=== PATIENT | male | born 1965 | race African-American/Black ===

== ENCOUNTER 2017-08-15 16:16 | Emergency (ER) | payer OTHER ==
[~2017-08-15] VITALS: Ht 172.7 cm; Wt 77.1 kg
--- NOTE | 2017-08-15 17:15 | NUR ---
PT DIRECTED TO ED BED 09 FROM THE ER HALLWAY. ASSISTED TO THE BED.
--- NOTE | 2017-08-15 17:17 | NUR ---
BB PRIVATE EMS FROM [facility] FOR ABD DISTENTION. PT IS TRACHED, ON 3LPM O2. PLACED ON CONT CARDIAC AND POX MONITORING. NAD. WILL CONT TO MONITOR
[2017-08-15] MEDS ORDERED: ONDANSETRON HCL/PF 4 MG/2 ML VIAL ONE (18:29)
[2017-08-15] MEDS ORDERED: MORPHINE SULFATE INJ 4 MG/ML DISP.SYRIN ONE (18:29)
[2017-08-15 18:30] LABS: BASOPHILS % (AUTO) 0.9 % (0.0-2.0); EOSINOPHILS % (AUTO) 9.4 % (0.0-6.0); HEMATOCRIT 47 % (39-51); HEMOGLOBIN 15.6 g/dL (13.5-17.5); LYMPHOCYTES # (AUTO) 1.1 /CMM (0.8-4.8); LYMPHOCYTES % (AUTO) 21.4 % (20.0-44.0); MEAN CORPUSCULAR HEMOGLOBIN 29 PG (26.0-33.0); MEAN CORPUSCULAR HGB CONC 33 g/dl (31.0-36.0); MEAN CORPUSCULAR VOLUME 87 fL (80-96); MONOCYTES # (AUTO) 0.8 /CMM (0.1-1.30); MONOCYTES % (AUTO) 14.6 % (2.0-12.0); NEUTROPHILS % (AUTO) 53.7 % (43.0-81.0); PLATELET COUNT (AUTO) 312 /CMM (150-450); RDW COEFFICIENT OF VARIATION 15.4 (11.5-15.0); RED BLOOD CELL COUNT(AUTO) 5.39 MIL/uL (4.5-6.0); WHITE BLOOD COUNT (AUTO) 5.4 K/uL (4.3-11.0)
[2017-08-15] MEDS ORDERED: ONDANSETRON HCL/PF 4 MG/2 ML VIAL IVP ONE (18:30)
[2017-08-15] MEDS ORDERED: MORPHINE SULFATE INJ 2 MG/ML DISP.SYRIN IV ONE (18:30)
[2017-08-15] MEDS ORDERED: IV NS 0.9% 1,000 ML BAG IV ONE (18:30)
[2017-08-15 18:39] LABS: CALCIUM, SERUM 9.9 mg/dL (8.5-10.1); CREATININE 0.8 mg/dL (0.6-1.3); POTASSIUM 4.2 mmol/L (3.5-5.1)
[2017-08-15 18:43] LABS: INR 1.08 (0.85-1.15)
[2017-08-15 18:45] LABS: ALBUMIN 3.9 g/dL (3.4-5.0); BILIRUBIN,DIRECT 0.2 mg/dL (0.0-0.2); BILIRUBIN,TOTAL 0.3 mg/dL (0.2-1.0)
--- NOTE | 2017-08-15 19:39 | NUR ---
ARRON BULLARD AT BEDSIDE.
--- NOTE | 2017-08-15 20:03 | NUR ---
ABDOMINAL ARRON DONE.
--- NOTE | 2017-08-15 23:01 | NUR ---
CALLED [facility] FOR TRANSPORT BACK TO [facility], ETA 90 MIN, TRIP [phone]
--- NOTE | 2017-08-16 00:26 | NUR ---
transport at bedside report given to emt.
--- NOTE | 2017-08-16 00:30 | NUR ---
IV removed. Catheter intact and site benign. Pressure and 4x4 applied to site. No bleeding noted.
[2017-08-16 00:34] VITALS: BP 123/91
--- NOTE | 2017-08-16 00:34 | NUR ---
report given to SNF Yeison damon.
== END 2017-08-16 00:35 | disposition home or self-care (01) ==
LOC: ER 16:19
DX: R14.0 Abdominal distension (gaseous) (principal); E11.9 Type 2 diabetes mellitus without complications; F41.9 Anxiety disorder, unspecified; R53.1 Weakness; G93.40 Encephalopathy, unspecified; R79.1 Abnormal coagulation profile; Z86.73 Personal history of transient ischemic attack (TIA), and cerebral infarction without residual deficits; Z87.09 Personal history of other diseases of the respiratory system; Z93.0 Tracheostomy status; Z93.1 Gastrostomy status
CPT/HCPCS: 36415; 76700-TC; 80048-TC; 80076-TC; 83690-TC; 85025-TC; 85730-TC; A4606; J2270; J2405; J7030; Z7610

== ENCOUNTER 2018-04-03 23:21 | Emergency (ER) | payer MEDICAID, OTHER ==
[~2018-04-03] VITALS: Ht 180.3 cm; Wt 90.7 kg
[2018-04-03 23:23] VITALS: BP 104/85
--- NOTE | 2018-04-03 23:25 | NUR ---
PT VIDYA FROM [facility] C/O GTUBE REPLACEMENT. GTUBE CAME OUT 1999 TODAY. PT AOX0. NAD NOTED. PT IN BED 12. WILL CONTINUE TO MONITOR.
--- NOTE | 2018-04-03 23:33 | NUR ---
CALLED [facility] [phone] TO CLARIFY PT GTUBE SIZE, SPOKE TO PER KEVIN ANDERSON STATES PT HAD 22F GTUBE.
--- NOTE | 2018-04-03 23:50 | NUR ---
DR. MAHONEY AT BEDSIDE FOR GTUBE REPLACEMENT.
[2018-04-03] MEDS ORDERED: DIATR MEGLU/DIATRIZOATE SODIUM 30 ML BOTTLE (GASTROGRAPHIN) ONE (23:56)
--- NOTE | 2018-04-04 | NUR ---
RADIOLOGY AT BEDSIDE TO VERIFY TUBE PLACEMENT
--- NOTE | 2018-04-04 | NUR ---
RADIOLOGY AT BEDSIDE FOR XRAY
--- NOTE | 2018-04-04 00:06 | NUR ---
IVANA ALCAZAR [place] [facility] [place]: 0030 RUN #: [id number]
--- NOTE | 2018-04-04 00:21 | NUR ---
REPORT GIVEN TO KEVIN PORTER FOR THONG
== END 2018-04-04 00:44 ==
LOC: ER 23:21
DX: K94.23 Gastrostomy malfunction (principal); G93.40 Encephalopathy, unspecified; E11.9 Type 2 diabetes mellitus without complications; F41.9 Anxiety disorder, unspecified; Z98.890 Other specified postprocedural states; Z86.73 Personal history of transient ischemic attack (TIA), and cerebral infarction without residual deficits; Z87.09 Personal history of other diseases of the respiratory system
CPT/HCPCS: 74018; Q9963

== ENCOUNTER 2018-04-19 19:05 | Inpatient (IN) | payer MEDICAID ==
[~2018-04-19] VITALS: Ht 180.3 cm; Wt 79.8 kg
--- NOTE | 2018-04-19 19:16 | NUR ---
PT BIBPA. C/O "HAVING COFFEE GROUND EMESIS VOMIT" -SOB -ACUTE DISTRESS AT THIS TIME. PT AOX.1 AT BASELINE. FAMILY AT BEDSIDE.
[2018-04-19] MEDS ORDERED: PANTOPRAZOLE 40 MG VIAL ONE (19:42)
[2018-04-19 20:00] LABS: BASOPHILS % (AUTO) 0.4 % (0.0-2.0); EOSINOPHILS % (AUTO) 3.4 % (0.0-6.0); HEMATOCRIT 49 % (39-51); HEMOGLOBIN 16.1 g/dL (13.5-17.5); LYMPHOCYTES # (AUTO) 1.1 /CMM (0.8-4.8); LYMPHOCYTES % (AUTO) 18.8 % (20.0-44.0); MEAN CORPUSCULAR HGB CONC 33 g/dl (31.0-36.0); MEAN CORPUSCULAR VOLUME 89 fL (80-96); MONOCYTES # (AUTO) 0.7 /CMM (0.1-1.30); MONOCYTES % (AUTO) 12.4 % (2.0-12.0); NEUTROPHILS # (AUTO) 3.6 /CMM (1.8-8.9); PLATELET COUNT (AUTO) 370 /CMM (150-450); RED BLOOD CELL COUNT(AUTO) 5.42 MIL/uL (4.5-6.0); WHITE BLOOD COUNT (AUTO) 5.6 K/uL (4.3-11.0)
[2018-04-19] MEDS ORDERED: IV NS 0.9% 1,000 ML BAG IV ONE (20:00)
[2018-04-19] MEDS ORDERED: PANTOPRAZOLE 40 MG VIAL IV ONE (20:00)
[2018-04-19 20:07] LABS: CALCIUM, SERUM 9.4 mg/dL (8.5-10.1); CREATININE 0.8 mg/dL (0.6-1.3); POTASSIUM 4.3 mmol/L (3.5-5.1)
[2018-04-19 20:14] LABS: ALBUMIN 3.5 g/dL (3.4-5.0); BILIRUBIN,DIRECT 0.1 mg/dL (0.0-0.2); BILIRUBIN,TOTAL 0.2 mg/dL (0.2-1.0); TOTAL PROTEIN, SERUM 8.2 g/dL (6.4-8.2)
--- NOTE | 2018-04-19 20:35 | NUR ---
PAGED DR LEWIS FOR CONSULT THIS PT
[2018-04-19] MEDS ORDERED: MAG HYDROX/AL HYDROX/SIMETH 30 ML UDC PO PRN (21:30)
[2018-04-19] MEDS ORDERED: ONDANSETRON HCL/PF 4 MG/2 ML VIAL IVP PRN (21:30)
[2018-04-19] MEDS ORDERED: Z GUARD REMEDY 2 OZ OINT TP PRN (21:30)
[2018-04-19] MEDS ORDERED: ACETAMINOPHEN 325 MG TABLET PO PRN (21:30)
[2018-04-19] MEDS ORDERED: MAGNESIUM HYDROXIDE 30 ML UDC PO PRN (21:30)
--- NOTE | 2018-04-19 22:06 | NUR ---
REPORT GIVEN TO ANNALEE BROWN.
[2018-04-19] MEDS ORDERED: SIME80TA15 GT (22:17)
[2018-04-19] MEDS ORDERED: GEMF600T5 GT (22:17)
[2018-04-19] MEDS ORDERED: PHEN32.43 GT (22:17)
[2018-04-19] MEDS ORDERED: SACC250C GT (22:17)
[2018-04-19] MEDS ORDERED: MULT-213 GT (22:17)
[2018-04-19] MEDS ORDERED: NUT.237L31 GT (22:17)
[2018-04-19] MEDS ORDERED: METO50TA16 GT (22:17)
[2018-04-19] MEDS ORDERED: CLON0.1T GT (22:17)
[2018-04-19] MEDS ORDERED: CALC-883 GT (22:17)
[2018-04-19] MEDS ORDERED: INSU100V7 SQ (22:17)
[2018-04-19] MEDS ORDERED: CRAN3875 GT (22:17)
[2018-04-19] MEDS ORDERED: IPRA3AMP23 IH ×2 (22:17)
[2018-04-19] MEDS ORDERED: ASPI-1169 GT (22:17)
[2018-04-19] MEDS ORDERED: FAMO20TA8 GT (22:17)
[2018-04-19] MEDS ORDERED: DOCU100C36 GT (22:17)
[2018-04-19] MEDS ORDERED: HEPA50008 SQ (22:17)
--- NOTE | 2018-04-19 22:20 | NUR ---
RN MS ADMITTING NOTE RECEIVED PT FROM ER, ADMITTED FOR GIB REPORT GIVEN BY SKILLS INSTRUCTORLEEANNA W FOOD PROCESSING PLANT MANAGER ADMITTING, ORDERS ENTERED PER PROTOCOL SKIN ISSUES NOTED WOUND CONSUL ENTERED, PT ON T-PIECES CONNECTED TO O2 @ 2L, POA, SISTER DOES NOT WANT TO BE ATTACHED TO AEROSOL HUMIDIFIER, "STATES PT BEEN OFF AEROSOL FOR 2 YRS" WISHES RESPECTED, WILL ENDORSE TO AM RN TO F/U W / TRANSPORTATION ENGINEERING TECHNICIAN. NOTED PT PRODUCTIVE, WITH LARGE YELLOW SECRETIONS, WITH STRONG COUGH ABLE TO EXPECTORATE. RAC#20G PATENT, NS@50 ML/HR STARTED, GTF ON HOLD, WITH ORDER TO INSERT NGT TO LICS BY FOOD PROCESSING PLANT MANAGER ERIN DURÁN DONE TO VERIFY PLACEMENT, HOB ELEVATED, ASP' PRECAUTION, ALL SAFETY MEASURES IN PLACE. WILL CONT' TO MONITOR.
[2018-04-19 22:46] VITALS: BP 123/88
--- NOTE | 2018-04-19 23:00 | NUR ---
ATTEMPTED TO PLACE COOL AEROSOL ON PT WITH TRACH COLLAR BUT FAMILY MEMBER AT BEDSIDE REFUSED DUE TO THE PT DOESN'T TOLERATE IT. CHARGE NURSE DARCY AND KEVIN MANTILLA NOTIFIED.
[2018-04-19] MEDS: IV NS 0.9% 1,000 ML IV PRN (23:27)
[2018-04-20 00:10] LABS: HEMOGLOBIN 14.7 g/dL (13.5-17.5)
[2018-04-20] MEDS ORDERED: Medication Not On Formulary EA (Ipratropium/Albuterol Sulfate (Duoneb 2.5-0.5 Mg/3 Ml So IH PRN (00:30)
[2018-04-20] MEDS ORDERED: CLONIDINE HCL 0.1 MG TABLET GT PRN (00:30)
[2018-04-20 04:29] VITALS: BP 119/86
[2018-04-20] MEDS: SIMETHICONE 80 MG TAB.CHEW GT SCH ×3 (05:17→21:06)
[2018-04-20] MEDS ORDERED: Medication Not On Formulary EA (Ipratropium/Albuterol Sulfate (Duoneb 2.5-0.5 Mg/3 Ml So IH SCH (06:00)
--- NOTE | 2018-04-20 06:43 | NUR ---
RN MS CLOSING NOTE ENDORSED PT IN CONT' ON ILS VIA NGT 100 ML O/P, VS STABLE, WILL ENDORSE TO AM RN TO F/U ON PLAN
[2018-04-20 07:04] LABS: BASOPHILS % (AUTO) 1.1 % (0.0-2.0); EOSINOPHILS % (AUTO) 7.4 % (0.0-6.0); HEMATOCRIT 43 % (39-51); HEMOGLOBIN 14.3 g/dL (13.5-17.5); LYMPHOCYTES # (AUTO) 1.1 /CMM (0.8-4.8); LYMPHOCYTES % (AUTO) 26.7 % (20.0-44.0); MEAN CORPUSCULAR HGB CONC 33 g/dl (31.0-36.0); MEAN CORPUSCULAR VOLUME 89 fL (80-96); MONOCYTES # (AUTO) 0.7 /CMM (0.1-1.30); MONOCYTES % (AUTO) 17.4 % (2.0-12.0); NEUTROPHILS # (AUTO) 1.9 /CMM (1.8-8.9); NEUTROPHILS % (AUTO) 47.4 % (43.0-81.0); PLATELET COUNT (AUTO) 292 /CMM (150-450); RED BLOOD CELL COUNT(AUTO) 4.84 MIL/uL (4.5-6.0)
[2018-04-20 07:23] LABS: CALCIUM, SERUM 8.8 mg/dL (8.5-10.1); CREATININE 0.7 mg/dL (0.6-1.3); MAGNESIUM 2.1 mg/dL (1.8-2.4); PHOSPHORUS 3.5 mg/dL (2.5-4.9); POTASSIUM 4.1 mmol/L (3.5-5.1)
--- NOTE | 2018-04-20 07:25 | NUR ---
MS RN INITIAL NOTES RECEIVED PT SLEEPING ON BED, BUT EASY TO AROUSE. PT NONVERBAL. PT ON T-PIECES CONNECTED TO O2 @ 2L, POA, SISTER DOES NOT WANT TO BE ATTACHED TO AEROSOL HUMIDIFIER PER HOSPITAL PHARMACIST NURSE AND WILL F/U W/ AMALGAMATOR. NO SOB AND PAIN NOTED. RAC#20G PATENT, NS@50 ML/HR, TOLERATING WELL, NO INFILTRATION NOTED. GTF CLAMPED, SITE CLEAN, DRY, AND INTACT. ASP PRECAUTION, ALL SAFETY MEASURES IN PLACE, SIDE RAILS UP X2, CALL LIGHT WITHIN REACH. WILL CONTINUE TO MONITOR PT THROUGHOUT SHIFT.
[2018-04-20 07:31] LABS: THYROID STIMULATING HORMONE 1.007 uIU/mL (0.358-3.74)
[2018-04-20 08:00] VITALS: BP 111/83
[2018-04-20] MEDS ORDERED: Medication Not On Formulary EA (Cran/Vitc/Mannose/Inulin/Brom (Uti-Stat Liquid) 30 ML) GT SCH (09:00)
[2018-04-20] MEDS ORDERED: INSULIN GLARGINE, 100 UNIT/ML CARTRIDGE SQ SCH (09:00)
[2018-04-20] MEDS ORDERED: CALCIUM CARB 250MG /VITAMIN D 1 UDTAB PO SCH (09:00)
[2018-04-20] MEDS ORDERED: ALBUTEROL FS 2.5 MG/0.5 ML VIAL.NEB NEB PRN (09:00)
[2018-04-20] MEDS ORDERED: IPRATROPIUM NEB FS 0.5 MG/2.5 ML AMPUL.NEB NEB PRN (09:00)
[2018-04-20] MEDS ORDERED: PANTOPRAZOLE 40 MG VIAL IV SCH (09:00)
[2018-04-20] MEDS: DOCUSATE SODIUM LIQ 100 MG/10 ML UDC GT SCH ×2 (09:37→17:01)
[2018-04-20] MEDS: PHENOBARBITAL 30 MG TABLET GT SCH (09:38)
[2018-04-20] MEDS: FAMOTIDINE (20 MG) 20 MG TABLET GT SCH ×2 (09:38→17:02)
[2018-04-20] MEDS: MULTIVITAMINS,THERAGRAN 1 UDTAB TABLET GT SCH (09:38)
[2018-04-20] MEDS: LACTOBACILLUS RHAMNOSUS GG 1 EACH CAP.SPRINK PO SCH (09:38)
[2018-04-20] MEDS: GEMFIBROZIL 600 MG TABLET GT SCH ×2 (09:38→17:02)
[2018-04-20] MEDS: METOPROLOL TARTRATE 50 MG TABLET GT SCH ×2 (09:46→17:02)
[2018-04-20] MEDS: PANTOPRAZOLE 40 MG/PACK PACK GT SCH (12:49)
[2018-04-20] MEDS: BLOOD SUGAR DIAGNOSTIC 1 EACH STRIP IN SCH ×2 (12:53→18:12)
[2018-04-20] MEDS: ALBUTEROL FS 2.5 MG/0.5 ML VIAL.NEB NEB SCH ×2 (13:57→19:47)
[2018-04-20] MEDS: IPRATROPIUM NEB FS 0.5 MG/2.5 ML AMPUL.NEB NEB SCH ×2 (13:57→19:47)
[2018-04-20 16:00] VITALS: BP 113/80
--- NOTE | 2018-04-20 16:00 | NUR ---
MS RN NOTES CONTACTED MURALI KRUEGER FOR CLARIFICATION OF RESUME TUBE FEEDING TOLERATED PER HER NOTE. AWAITING FOR RESPONSE.
[2018-04-20] MEDS: SUCRALFATE 1 G/10 ML UDC GT SCH ×2 (17:01→21:06)
--- NOTE | 2018-04-20 19:20 | NUR ---
MS RN CLOSING NOTES PT RESTING IN BED, NONVERBAL. PT ON T-PIECES CONNECTED TO O2 AT 2L, TOLERATING WELL. NO SOB AND PAIN NOTED. RAC #20G PATENT, NS@50 ML/HR, TOLERATING WELL, NO INFILTRATION NOTED. GTF CLAMPED, SITE CLEAN, DRY, AND INTACT. ASP PRECAUTION, ALL SAFETY MEASURES IN PLACE, SIDE RAILS UP X2, CALL LIGHT WITHIN REACH. NO ACUTE CHANGES THROUGHOUT SHIFT. ALL NEEDS MET. ALL MD ORDER ATTENDED. ENDORSED TO CADDY PACKER NURSE FOR THONG.
--- NOTE | 2018-04-20 19:30 | NUR ---
MS RN NOTE REPORT GIVEN BEDSIDE, PT RESTING IN BED, NONVERBAL SISTER IN ROOM. PT ON T-PIECES CONNECTED TO O2 AT 2L, TOLERATING WELL. NO SOB AND PAIN NOTED. PER SISTER, "MY BROTHER APPEARS COMFORTABLE" RAC #20G PATENT, NS@50 ML/HR, TOLERATING WELL, NO INFILTRATION NOTED. GTF CLAMPED, SITE CLEAN, DRY, AND INTACT. ASP PRECAUTION, ALL SAFETY MEASURES IN PLACE, SIDE RAILS UP X3, CALL LIGHT WITHIN REACH. NO S/S OF DISTRESS ALL NEEDS MET RN WILL CONTINUE TO MONITOR
[2018-04-20] MEDS: IV NS 0.9% 1,000 ML IV PRN (19:55)
[2018-04-20 20:00] VITALS: BP 103/72
[2018-04-20 20:06] VITALS: BP 103/72
[2018-04-20] MEDS: INSULIN GLARGINE, 100 UNIT/ML CARTRIDGE SQ SCH (21:24)
--- NOTE | 2018-04-20 22:15 | NUR ---
MS RN NOTE PATIENT BATHED, LINENS CHANGED, AND REPOSITIONED FOR COMFORT
--- NOTE | 2018-04-21 00:08 | NUR ---
MS RN NOTE PATIENT REPOSITIONED FOR COMFORT AND TRACHEAL SITE CLEANSED
[2018-04-21] MEDS: ALBUTEROL FS 2.5 MG/0.5 ML VIAL.NEB NEB SCH ×4 (02:02→19:28)
[2018-04-21] MEDS: IPRATROPIUM NEB FS 0.5 MG/2.5 ML AMPUL.NEB NEB SCH ×4 (02:02→19:28)
[2018-04-21 04:00] VITALS: BP 109/69
[2018-04-21] MEDS: BLOOD SUGAR DIAGNOSTIC 1 EACH STRIP IN SCH ×4 (05:32→17:28)
[2018-04-21] MEDS: SIMETHICONE 80 MG TAB.CHEW GT SCH ×3 (05:32→21:42)
[2018-04-21 06:21] LABS: BASOPHILS % (AUTO) 0.3 % (0.0-2.0); HEMATOCRIT 42 % (39-51); HEMOGLOBIN 13.7 g/dL (13.5-17.5); LYMPHOCYTES # (AUTO) 0.8 /CMM (0.8-4.8); LYMPHOCYTES % (AUTO) 12.8 % (20.0-44.0); MEAN CORPUSCULAR HGB CONC 33 g/dl (31.0-36.0); MEAN CORPUSCULAR VOLUME 89 fL (80-96); MONOCYTES # (AUTO) 0.8 /CMM (0.1-1.30); MONOCYTES % (AUTO) 12.9 % (2.0-12.0); NEUTROPHILS # (AUTO) 4.4 /CMM (1.8-8.9); PLATELET COUNT (AUTO) 293 /CMM (150-450); RED BLOOD CELL COUNT(AUTO) 4.65 MIL/uL (4.5-6.0); WHITE BLOOD COUNT (AUTO) 6.3 K/uL (4.3-11.0)
[2018-04-21 06:28] LABS: CALCIUM, SERUM 8.7 mg/dL (8.5-10.1); CREATININE 0.7 mg/dL (0.6-1.3); POTASSIUM 4.3 mmol/L (3.5-5.1)
[2018-04-21] MEDS: SUCRALFATE 1 G/10 ML UDC GT SCH ×4 (06:40→21:42)
--- NOTE | 2018-04-21 07:10 | NUR ---
MS RN OPENING NOTES RECEIVED PT LYING ON BED.PT IS AWAKE AND OBTUNDED,CANNOT FOLLOW COMMANDS.ON COOL AEROSOL O2 2L,TOLERATING WELL.NO SOB AND ACUTE DISTRESS NOTED.NG TUBE IS IN PLACE WITH LOW INTERMITTENT SUCTION.NO BLEEDING NOTED.NPO EXCEPT MEDS.IV LINE IS ON RIGHT AC G20,IV FLUID UIS RUNNING,SITE IS CLEAN,DRY AND INTACT.NO INFILTRATION NOTED.SAFETY IS MAINTAINED AT ALL TIMES.CALL LIGHT IS WITHIN REACH.BED IS IN LOCKED .WILL CONTINUE TO MONITOR THE PT CLOSELY.
--- NOTE | 2018-04-21 07:21 | NUR ---
MS RN NOTE NO ACUTE CHANGES THROUGHOUT THE SHIFT. CARE EXECUTED ORDERED. ENDORSED TO AM FOR THONG.
[2018-04-21 08:00] VITALS: BP 103/73
[2018-04-21] MEDS: GEMFIBROZIL 600 MG TABLET GT SCH ×2 (08:30→17:27)
[2018-04-21] MEDS: DOCUSATE SODIUM LIQ 100 MG/10 ML UDC GT SCH ×2 (08:30→17:27)
[2018-04-21] MEDS: LACTOBACILLUS RHAMNOSUS GG 1 EACH CAP.SPRINK PO SCH (08:30)
[2018-04-21] MEDS: PANTOPRAZOLE 40 MG/PACK PACK GT SCH (08:30)
[2018-04-21] MEDS: CALCIUM CARB 250MG /VITAMIN D 1 UDTAB GT SCH (08:31)
[2018-04-21] MEDS: FAMOTIDINE (20 MG) 20 MG TABLET GT SCH ×2 (08:31→17:27)
[2018-04-21] MEDS: MULTIVITAMINS,THERAGRAN 1 UDTAB TABLET GT SCH (08:31)
[2018-04-21] MEDS: PHENOBARBITAL 30 MG TABLET GT SCH (08:31)
[2018-04-21] MEDS: METOPROLOL TARTRATE 50 MG TABLET GT SCH ×2 (08:31→17:28)
[2018-04-21 16:00] VITALS: BP 98/66
[2018-04-21] MEDS: IV NS 0.9% 1,000 ML IV PRN (16:28)
[2018-04-21] MEDS: INSULIN GLARGINE, 100 UNIT/ML CARTRIDGE SQ SCH (17:29)
[2018-04-21] MEDS ORDERED: VITAMINS A AND D 56.7 GM TUBE TP PRN (18:00)
--- NOTE | 2018-04-21 18:40 | NUR ---
MS RN CLOSING NOTES PT IS LYING ON BED WITH LOW INTERMITTENT NG TUBE SUCTION.ALL THE DUE MEDS ARE GIVEN.FAMILY IS AT BEDSIDE.PT IS CLEAN DRY AND INTACT.NO INFILTRATION NOTED.KIARA ENDORSE TO CURRICULUM SUPERVISOR RN FOR THONG AND NOTE VITAL SIGNS.
--- NOTE | 2018-04-21 19:30 | NUR ---
RECEIVED PATIENT IN BED WITH EYES CLOSED; EASILY AROUSABLE. OBTUNDED; RESPONSIVE TO VOICE AND TOUCH. NO ACUTE DISTRESS NOTED. NO SIGNS OF PAIN NOTED. IV SITE PATENT, INTACT; IVF INFUSING ORDERED. NGT IN PLACE; ON INTERMITTENT LOW SUCTION. HOB RAISED. COOLING MEASURES GIVEN FOR TEMP 100F. ON LOW BED WITH BILATERAL UPPER SIDE RAILS UP. CALL ESCALERA WITHIN EASY REACH. WILL CONTINUE TO MONITOR. SISTER AT BEDSIDE.
[2018-04-21 20:00] VITALS: BP 124/82
[2018-04-22] MEDS: BLOOD SUGAR DIAGNOSTIC 1 EACH STRIP IN SCH ×5 (00:24→23:41)
[2018-04-22] MEDS: IPRATROPIUM NEB FS 0.5 MG/2.5 ML AMPUL.NEB NEB SCH ×4 (01:20→20:05)
[2018-04-22] MEDS: ALBUTEROL FS 2.5 MG/0.5 ML VIAL.NEB NEB SCH ×4 (01:20→20:05)
[2018-04-22] MEDS: SIMETHICONE 80 MG TAB.CHEW GT SCH ×3 (05:39→21:07)
--- NOTE | 2018-04-22 06:30 | NUR ---
PATIENT ASLEEP, EASILY AROUSABLE. RESPIRATIONS EVEN. NO SIGNS OF PAIN NOTED. AFEBRILE. DUE MEDS GIVEN WITH NO ASE NOTED. NEEDS ATTENDED. KEPT CLEAN, DRY, AND COMFORTABLE. TURNED AND REPOSITIONED Q 2 HOURS. SUCTIONED PRN. SAFETY PRECAUTIONS AND COMFORT MEASURES IN PLACE. WILL GIVE REPORT TO DAY SHIFT FOR CONTINUITY OF CARE.
--- NOTE | 2018-04-22 07:28 | NUR ---
RN MS OPENING NOTES RECEIVED PATIENT IN BED OBTUNDED WITH SPONTANEOUS EYE MOVEMENT.NO SIGNS OR SYMPTOMS OF RESPIRATORY DISTRESS ON 5 LTRS COOL AEROSOL VIA TRACH MASK.NO ACUTE PAIN NOTED. NGT IN PLACE ON INTERMITTENT SUCTION NO SEAN BLOOD NOTED AT THIS TIME. NPO AT TIS TIME EXCEPT MEDS SAFETY PRECAUTIONS IN LACE BED IN LOW AND LOCKED POSITION. WILL CONT TO MONITOR
[2018-04-22 08:00] VITALS: BP_SYST 126; BP_DIAS 83; BP_DIAS 86
[2018-04-22] MEDS: PHENOBARBITAL 30 MG TABLET GT SCH (08:37)
[2018-04-22] MEDS: GEMFIBROZIL 600 MG TABLET GT SCH ×2 (08:37→17:38)
[2018-04-22] MEDS: FAMOTIDINE (20 MG) 20 MG TABLET GT SCH ×2 (08:37→17:38)
[2018-04-22] MEDS: MULTIVITAMINS,THERAGRAN 1 UDTAB TABLET GT SCH (08:37)
[2018-04-22] MEDS: DOCUSATE SODIUM LIQ 100 MG/10 ML UDC GT SCH ×2 (08:37→17:38)
[2018-04-22] MEDS: LACTOBACILLUS RHAMNOSUS GG 1 EACH CAP.SPRINK PO SCH (08:37)
[2018-04-22] MEDS: CALCIUM CARB 250MG /VITAMIN D 1 UDTAB GT SCH (08:38)
[2018-04-22] MEDS: PANTOPRAZOLE 40 MG/PACK PACK GT SCH (08:38)
[2018-04-22] MEDS: METOPROLOL TARTRATE 50 MG TABLET GT SCH ×2 (08:38→17:38)
[2018-04-22] MEDS: SUCRALFATE 1 G/10 ML UDC GT SCH ×4 (08:55→21:07)
[2018-04-22] MEDS ORDERED: GLUCERNA 1.2 1,000 ML BOTTLE NG PRN (10:30)
--- NOTE | 2018-04-22 11:30 | NUR ---
RN MS NOTES NG CLAMPED FEEDING STARTED @ 10ML/HR WITH GOAL OF 70ML/HR. WILL INCREASE Q8HRS BY 10 ML IF PATIENT IS TOLERATING
--- NOTE | 2018-04-22 11:45 | NUR ---
RN MS NOTES PATIENT ORDERS FOR EGD IN THE AM .AWAITING FAMILY ARRIVAL TO OBTAIN CONSENT PATIENT WILL BE NPO AFTER DINNER
[2018-04-22] MEDS: IV NS 0.9% 1,000 ML IV PRN (12:17)
[2018-04-22 16:00] VITALS: BP 113/81
[2018-04-22] MEDS ORDERED: VITAMINS A AND D 56.7 GM TUBE TP PRN (17:00)
[2018-04-22] MEDS: INSULIN GLARGINE, 100 UNIT/ML CARTRIDGE SQ SCH (17:43)
--- NOTE | 2018-04-22 17:57 | NUR ---
CONSENT OBTAINED FROM SISTER
--- NOTE | 2018-04-22 19:31 | NUR ---
RN MS OPENING NOTES RECEIVED PT IN BED,SLEEPING, EASILY AROUSE TO TOUCH, OBTUNDED. BREATHING EVEN AND UN LABORED ON COOL AEROSOL, 5L TRACH COLLAR. CLAMPED NG TUBE IN PLACE. CLAMPED GTUBE IN PLACE. PT NPO AFTER MIDNIGHT FOR EGD IN THE AM. IV ON THW R AC #20 NS @50ML/HR. SISTER AT BEDSIDE, BED INLOWEST LOCKED POSITION, WILL CONTINUE TO MONITOR.
--- NOTE | 2018-04-22 19:36 | NUR ---
RN MS CLOSING NOTES PATIENT IN BED OBTUNDED WITH SPONTANEOUS EYE MOVEMENT.NO SIGNS OR SYMPTOMS OF RESPIRATORY DISTRESS ON 5 LTRS COOL AEROSOL VIA TRACH MASK.NO ACUTE PAIN NOTED. NGT IN PLACE AND CLAMPED TOLERATED GTF AT 10 ML/HR NOW NPO AT THIS TIME EXCEPT MEDS FOR EGD IN AM. CONSENT SIGNED AND IN FOLDER SAFETY PRECAUTIONS IN PLACE BED IN LOW AND LOCKED POSITION. WILL ENDORSE TO NOC
[2018-04-23] VITALS: BP 115/76
[2018-04-23] MEDS: IPRATROPIUM NEB FS 0.5 MG/2.5 ML AMPUL.NEB NEB SCH ×4 (01:09→19:46)
[2018-04-23] MEDS: ALBUTEROL FS 2.5 MG/0.5 ML VIAL.NEB NEB SCH ×4 (01:09→19:46)
--- NOTE | 2018-04-23 01:17 | NUR ---
PATIENT RECEIVED ON 28% AEROSOL T-COLLAR, TOLERATING WITH NO DISTRESS/SOB NOTED. SUCTIONED FOR MODERATE, THIN, WHITE SECRETIONS. GIVEN IN-LINE TREATMENTS WITH NO ADVERSE REACTIONS. AMBU BAG AT BEDSIDE. Addendum: 04/23/18 at 0122 by JOHANA KELLEY RT Amended: Links added.
[2018-04-23] MEDS: SIMETHICONE 80 MG TAB.CHEW GT SCH ×3 (05:19→21:58)
[2018-04-23] MEDS: IV NS 0.9% 1,000 ML IV PRN (05:20)
[2018-04-23] MEDS: BLOOD SUGAR DIAGNOSTIC 1 EACH STRIP IN SCH ×3 (05:41→18:03)
[2018-04-23 06:29] LABS: BASOPHILS % (AUTO) 0.7 % (0.0-2.0); EOSINOPHILS % (AUTO) 3.2 % (0.0-6.0); HEMATOCRIT 40 % (39-51); HEMOGLOBIN 13.5 g/dL (13.5-17.5); LYMPHOCYTES # (AUTO) 0.8 /CMM (0.8-4.8); LYMPHOCYTES % (AUTO) 12.3 % (20.0-44.0); MEAN CORPUSCULAR HGB CONC 34 g/dl (31.0-36.0); MEAN CORPUSCULAR VOLUME 88 fL (80-96); NEUTROPHILS # (AUTO) 4.6 /CMM (1.8-8.9); NEUTROPHILS % (AUTO) 68.8 % (43.0-81.0); PLATELET COUNT (AUTO) 262 /CMM (150-450); RED BLOOD CELL COUNT(AUTO) 4.52 MIL/uL (4.5-6.0); WHITE BLOOD COUNT (AUTO) 6.6 K/uL (4.3-11.0)
[2018-04-23 06:46] LABS: CALCIUM, SERUM 8.8 mg/dL (8.5-10.1); CREATININE 0.7 mg/dL (0.6-1.3); POTASSIUM 3.6 mmol/L (3.5-5.1)
--- NOTE | 2018-04-23 06:52 | NUR ---
RN MS CLOSING NOTES PT REMAINS IN BED,SLEEPING, EASILY AROUSED TO TOUCH, OBTUNDED. BREATHING EVEN AND UNLABORED ON COOL AEROSOL, 5L TRACH COLLAR. CLAMPED NG TUBE IN PLACE. CLAMPED GTUBE IN PLACE. PT NPO FOR EGD IN THE AM. IV ON THE R AC #20 NS @50ML/HR.BG 83, NO ACTION NEEDED, BED IN LOWEST LOCKED POSITION, WILL ENDORSE TO DAY NURSE FOR THONG.
[2018-04-23 08:00] VITALS: BP 81/76
[2018-04-23] MEDS: GEMFIBROZIL 600 MG TABLET GT SCH ×2 (09:50→17:35)
[2018-04-23] MEDS: PHENOBARBITAL 30 MG TABLET GT SCH (09:50)
[2018-04-23] MEDS: PANTOPRAZOLE 40 MG/PACK PACK GT SCH ×2 (09:50→21:58)
[2018-04-23] MEDS: CALCIUM CARB 250MG /VITAMIN D 1 UDTAB GT SCH (09:50)
[2018-04-23] MEDS: DOCUSATE SODIUM LIQ 100 MG/10 ML UDC GT SCH ×2 (09:50→17:35)
[2018-04-23] MEDS: SUCRALFATE 1 G/10 ML UDC GT SCH ×4 (09:50→21:58)
[2018-04-23] MEDS: FAMOTIDINE (20 MG) 20 MG TABLET GT SCH ×2 (09:50→17:35)
[2018-04-23] MEDS: MULTIVITAMINS,THERAGRAN 1 UDTAB TABLET GT SCH (09:50)
[2018-04-23] MEDS: LACTOBACILLUS RHAMNOSUS GG 1 EACH CAP.SPRINK PO SCH (09:50)
[2018-04-23] MEDS: METOPROLOL TARTRATE 50 MG TABLET GT SCH ×2 (09:51→17:36)
[2018-04-23] MEDS ORDERED: GLUCERNA 1.2 1,000 ML BOTTLE NG PRN ×2 (11:08→23:00)
[2018-04-23 16:00] VITALS: BP 103/70
[2018-04-23] MEDS: INSULIN GLARGINE, 100 UNIT/ML CARTRIDGE SQ SCH (19:34)
--- NOTE | 2018-04-23 19:53 | NUR ---
MS RN CLOSING NOTES PT IN BED,SLEEPING, A/O X 1, OBTUNDED. BREATHING EVEN AND UNLABORED ON COOL AEROSOL, 5L TRACH COLLAR. NG TUBE REMOVED PER MD. GTUBE INTACT AND PATENT RUNNING GLUCERNA @ 30ML/HOUR. PATIENT TOLERATING FEEDING WELL. SCHEDULED EGD CANCELLED TODAY PER MD. IV ON THE R AC #20 NS @50ML/HR. PATIENT TURNED PER PROTOCOL DURING SHIFT. HEELS FLOATED. SAFETY MEASURES IN PLACE. BED IN LOWEST AND LOCKED POSITION. CARE ENDORSED TO GAS PIT WORKER RN.
[2018-04-23 20:00] VITALS: BP 118/77
[2018-04-23 20:24] VITALS: BP 118/77
--- NOTE | 2018-04-23 20:42 | NUR ---
RN INITIAL NOTES Patient in bed, eyes closed. Trach collar intact to cool aerosol 5L oxygen, tolerating well. Abdomen presence of Gtube, gastric residual minimal amount. No facial grimace, no moaning, appears comfortable in bed. Maintained safety, will cont to monitor.
[2018-04-24] MEDS: BLOOD SUGAR DIAGNOSTIC 1 EACH STRIP IN SCH ×3 (00:23→12:13)
[2018-04-24] MEDS: ALBUTEROL FS 2.5 MG/0.5 ML VIAL.NEB NEB SCH ×3 (02:01→14:25)
[2018-04-24] MEDS: IPRATROPIUM NEB FS 0.5 MG/2.5 ML AMPUL.NEB NEB SCH ×3 (02:01→14:25)
[2018-04-24] MEDS: IV NS 0.9% 1,000 ML IV PRN (03:12)
[2018-04-24 04:00] VITALS: BP 121/76
[2018-04-24 04:55] VITALS: BP 121/76
[2018-04-24] MEDS: SIMETHICONE 80 MG TAB.CHEW GT SCH ×2 (05:20→12:13)
--- NOTE | 2018-04-24 07:00 | NUR ---
MS RN CLOSING NOTES Patient in bed, non verbal, able to open eyes. Trach collar intact to cool aerosol 5L oxygen, tolerating well. Thick mucus, nebulizer as scheduled per RT, suction PRN. Gtube intact, gastric residual minimal amount 5ml. Gtube feeding Glucerna 1.2 at 50ml Goal rate, tolerating well. No vomiting. No BM this shift. Maintained safety. Per Dr. Jackman/GI will not do EGD at this time (see miscellaneous order). Patient's sister voicing to proceed with EGD, per report Dr. Blackman will inform GI. Will endorse to oncoming RN. 0
--- NOTE | 2018-04-24 07:30 | NUR ---
RN NOTES RECEIVED PATIENT IN BED RESTING COMFORTABLY. NON VERBAL WITH TRACH COLLAR, RESPIRATIONS EVEN AND UNLABORED, IN NO APPARENT PAIN OR DISCOMFORT. IV ACCESS PATENT AND INTACT NO REDNESS OR INFILTRATION NOTED. PATIENT KEPT CLEAN DRY AND COMFORTABLE, CALL LIGHT WITHIN EASY REACH, WILL CONTINUE TO MONITOR
[2018-04-24 07:45] LABS: CALCIUM, SERUM 8.5 mg/dL (8.5-10.1); CREATININE 0.6 mg/dL (0.6-1.3); POTASSIUM 3.6 mmol/L (3.5-5.1)
[2018-04-24 08:00] VITALS: BP 113/63
[2018-04-24 08:21] LABS: BASOPHILS % (AUTO) 0.9 % (0.0-2.0); EOSINOPHILS % (AUTO) 6.6 % (0.0-6.0); HEMATOCRIT 37 % (39-51); HEMOGLOBIN 12.7 g/dL (13.5-17.5); LYMPHOCYTES # (AUTO) 0.8 /CMM (0.8-4.8); LYMPHOCYTES % (AUTO) 15.8 % (20.0-44.0); MEAN CORPUSCULAR HGB CONC 34 g/dl (31.0-36.0); MEAN CORPUSCULAR VOLUME 88 fL (80-96); MONOCYTES # (AUTO) 0.8 /CMM (0.1-1.30); MONOCYTES % (AUTO) 15.9 % (2.0-12.0); NEUTROPHILS # (AUTO) 3.1 /CMM (1.8-8.9); NEUTROPHILS % (AUTO) 60.8 % (43.0-81.0); PLATELET COUNT (AUTO) 251 /CMM (150-450); RED BLOOD CELL COUNT(AUTO) 4.27 MIL/uL (4.5-6.0)
--- NOTE | 2018-04-24 08:45 | NUR ---
RN NOTES PER GI DR. KIRAN, NO EGD AT THIS TIME, PT TO BE CONTINUED TO BE MONITORED
[2018-04-24] MEDS: SUCRALFATE 1 G/10 ML UDC GT SCH ×2 (08:56→12:13)
[2018-04-24] MEDS: CALCIUM CARB 250MG /VITAMIN D 1 UDTAB GT SCH (08:56)
[2018-04-24] MEDS: GEMFIBROZIL 600 MG TABLET GT SCH (08:56)
[2018-04-24] MEDS: LACTOBACILLUS RHAMNOSUS GG 1 EACH CAP.SPRINK PO SCH (08:57)
[2018-04-24] MEDS: METOPROLOL TARTRATE 50 MG TABLET GT SCH (08:57)
[2018-04-24] MEDS: MULTIVITAMINS,THERAGRAN 1 UDTAB TABLET GT SCH (08:57)
[2018-04-24] MEDS: FAMOTIDINE (20 MG) 20 MG TABLET GT SCH (08:57)
[2018-04-24] MEDS: PANTOPRAZOLE 40 MG/PACK PACK GT SCH (08:57)
[2018-04-24] MEDS: DOCUSATE SODIUM LIQ 100 MG/10 ML UDC GT SCH (08:58)
[2018-04-24] MEDS: PHENOBARBITAL 30 MG TABLET GT SCH (08:58)
[2018-04-24 10:37] LABS: BAND % (MANUAL) 1 % (0.0-5.0); EOSINOPHILS % (MANUAL) 3 % (0-4); LYMPHOCYTES % (MANUAL) 16 % (16-48); MONOCYTES % (MANUAL) 19 % (0-11.0); NEUTROPHILS % (MANUAL) 61 (42-76)
[2018-04-24 16:00] VITALS: BP 103/75
--- NOTE | 2018-04-24 16:45 | NUR ---
RN NOTES PATIENT IN BED RESTING COMFORTABLY. NON VERBAL WITH TRACH COLLAR, RESPIRATIONS EVEN AND UNLABORED, IN NO APPARENT PAIN OR DISCOMFORT. IV ACCESS REMOVED ORDERED WITH NO COMPLICATIONS NOTED. PATIENT KEPT CLEAN DRY AND COMFORTABLE, REMAINS AFEBRILE, REPORT GIVEN TO SNF RNDINH, FOR CONTINUITY OF CARE, FAMILY AWARE OF PT'S DC ALL BELONGINGS ACCOUNTED FOR, ID REMOVED PICTURES OF SKIN TAKEN, DISCHARGED IN STABLE CONDITION
== END 2018-04-24 16:45 | DRG 253 ==
LOC: ER 19:07 → TELE1 22:07 → MEDSG1 22:39
PROVIDERS: ADMIT Registered Nurse; ATTEND Family Medicine
DX: K92.2 Gastrointestinal hemorrhage, unspecified (principal); G93.40 Encephalopathy, unspecified; Z99.11 Dependence on respirator [ventilator] status; J96.10 Chronic respiratory failure, unspecified whether with hypoxia or hypercapnia; R53.2 Functional quadriplegia; Z93.0 Tracheostomy status; D68.59 Other primary thrombophilia; D63.8 Anemia in other chronic diseases classified elsewhere; E11.9 Type 2 diabetes mellitus without complications; F41.9 Anxiety disorder, unspecified; Z93.1 Gastrostomy status; R74.8 Abnormal levels of other serum enzymes; R13.10 Dysphagia, unspecified; Z86.73 Personal history of transient ischemic attack (TIA), and cerebral infarction without residual deficits
CPT/HCPCS: 31720; 36415; 71045-TC; 74018; 76700-TC; 80048-TC; 80061-TC; 80076-TC; 82962-TC; 82977-TC; 83690-TC; 83735-TC; 84100-TC; 84443-TC; 85025-TC; 85027-TC; 85730-TC; 86850-TC; 87081-TC; 94640-TC; 94760-TC; A4623; A6402; C9113; G0378; J1815; J7030

== ENCOUNTER 2020-04-03 17:10 | Inpatient (IN) | payer MEDICAID ==
[~2020-04-03] VITALS: Ht 170.2 cm; Wt 70.8 kg
[~2020-04-03 17:10] MED LIST: ASPI-1169 GT; CALC-883 GT; CLON0.1T GT; CRAN3875 GT; DOCU100C36 GT; FAMO20TA8 GT; GEMF600T90 GT; HEPA50008 SQ; INSU100V7 SQ; IPRA3AMP23 IH; METO50TA16 GT; MULT-213 GT; NUT.237L31 GT; PHEN32.46 GT; SACC250C GT; SIME80TA15 GT
--- NOTE | 2020-04-03 17:22 | NUR ---
MIKE ELMORE FROM [facility] FOR NOTED TACHYCARDIA. TO ER BED 8, HOOKED TO NON DESTRUCTIVE TESTING SCIENTIST, BP CUFF AND POX, NOTED SINUS TACHYCARDIC AT 118BPM, WARM TO TOUCH. NOTED W TRACHEOSTOMY, AT 4LPM O2, G-TUBE, AND R FOOT IVP 22G. CHANGED TO HOSP GOWN, COOLING MEASURES DONE. DR CALLE AT BEDSIDE
--- NOTE | 2020-04-03 17:32 | NUR ---
EER TECH AT BEDSIDE FOR EKG
--- NOTE | 2020-04-03 17:52 | NUR ---
URINE SAMPLE COLLECTED VIA IRIZARRY CATHETER AND SENT TO LAB
[2020-04-03] MEDS ORDERED: ACETAMINOPHEN 325 MG TABLET MC ONE (18:00)
--- NOTE | 2020-04-03 18:00 | NUR ---
RAPID AND PCR COVID SWAB DONE AND SENT TO LAB
[2020-04-03] MEDS ORDERED: INSU100V39 SQ (18:05)
[2020-04-03] MEDS ORDERED: ACET325T53 PO ×2 (18:05)
[2020-04-03] MEDS ORDERED: MAGN400O6 PO (18:05)
[2020-04-03] MEDS ORDERED: NA P133E RC (18:05)
[2020-04-03] MEDS ORDERED: ASCO500C17 PO (18:05)
[2020-04-03] MEDS ORDERED: CEFT1FRO2 IV (18:05)
[2020-04-03] MEDS ORDERED: QUERCETIN PO (18:05)
[2020-04-03] MEDS ORDERED: NUT.237L30 GT (18:05)
[2020-04-03] MEDS ORDERED: CHOL200013 PO (18:05)
[2020-04-03] MEDS ORDERED: BISA10SU11 RC (18:05)
[2020-04-03] MEDS ORDERED: SENN-18 PO (18:05)
[2020-04-03] MEDS ORDERED: ACET-2605 PO (18:05)
[2020-04-03] MEDS ORDERED: CHLO118L4 TP (18:05)
[2020-04-03] MEDS ORDERED: ACETAMINOPHEN 325 MG TABLET ONE (18:07)
[2020-04-03 18:20] LABS: BILIRUBIN,URINE Negative (NEGATIVE); COLOR,URINE YELLOW (YELLOW); LEUKOCYTE ESTERASE ,URINE Negative (NEGATIVE); NITRITE, URINE Negative (NEGATIVE); PH,URINE 6.5 (5.0-8.0); PROTEIN,URINE 100 mg/dl (NEGATIVE); UGLUCOSE Negative (NEGATIVE); UROBILINOGEN,URINE 0.2 EU/dL (0.2)
[2020-04-03 18:21] LABS: ALANINE AMINOTRANSFERASE 90 U/L (12-78); ALKALINE PHOSPHATASE 110 U/L (46-116); ASPARTATE AMINOTRANSFERASE 41 U/L (15-37); B-TYPE NATRIURETIC PEPTIDE 83 PG/ML (0-125); BILIRUBIN,DIRECT 0.1 mg/dL (0.0-0.2); BILIRUBIN,TOTAL 0.3 mg/dL (0.2-1.0); CALCIUM, SERUM 8.9 mg/dL (8.5-10.1); CARBON DIOXIDE 35 mmol/L (21-32); CHLORIDE 118 mmol/L (98-107); CREATININE 1.1 mg/dL (0.6-1.3); GLUCOSE 233 mg/dL (74-106); POTASSIUM 3.8 mmol/L (3.5-5.1); TOTAL PROTEIN, SERUM 8.8 g/dL (6.4-8.2)
[2020-04-03 18:22] LABS: BASOPHILS # (AUTO) 0.1 /CMM (0.0-0.2); BASOPHILS % (AUTO) 1.3 % (0.0-2.0); HEMATOCRIT 42 % (39-51); HEMOGLOBIN 13.2 g/dL (13.5-17.5); LYMPHOCYTES # (AUTO) 1.6 /CMM (0.8-4.8); MEAN CORPUSCULAR HGB CONC 32 g/dl (31.0-36.0); MEAN CORPUSCULAR VOLUME 87 fL (80-96); MONOCYTES # (AUTO) 0.8 /CMM (0.1-1.30); MONOCYTES % (AUTO) 10.8 % (2.0-12.0); NEUTROPHILS # (AUTO) 4.7 /CMM (1.8-8.9); NEUTROPHILS % (AUTO) 63.9 % (43.0-81.0); PLATELET COUNT (AUTO) 208 /CMM (150-450); WHITE BLOOD COUNT (AUTO) 7.3 K/uL (4.3-11.0)
[2020-04-03 18:23] LABS: SODIUM SERUM 159 mmol/L (136-145)
[2020-04-03] MEDS ORDERED: PIPERACILLIN /TAZOBACTAM 3.375 G in IV D5W 50 ML IV ONE (18:30)
[2020-04-03 18:31] LABS: BACTERIA,URINE Rare /HPF (None Seen); RBC,URINE 0-2 /HPF (0-2); SQUAMOUS EPITHELIAL CELL,UR 0-2 /HPF (None Seen); WBC,URINE 0-2 /HPF (0-3)
[2020-04-03 18:32] LABS: UREA NITROGEN, BLOOD 30 mg/dL (7-18)
--- NOTE | 2020-04-03 19:09 | NUR ---
REPORT GIVEN TO FELICIA BROWN FOR THONG
--- NOTE | 2020-04-03 19:10 | NUR ---
PT NONVERBAL W/ TRACHE IN PLACE. VSS AT THIST TIME. NO ACUTE DISTRESS NOTED. PT CONNECTED TO THE SHEET TURNER AND POX. WILL CONTINUE TO MONITOR PT
--- NOTE | 2020-04-03 19:20 | NUR ---
negative covid per lab
--- NOTE | 2020-04-03 19:29 | NUR ---
MURALI RODRÍGUEZ SPEAKING TO DR. CALLE REGARDING PLAN OF CARE.
[2020-04-03] MEDS ORDERED: IV NS 0.9% 1,000 ML BAG IV ONE (19:30)
[2020-04-03] MEDS ORDERED: VANCOMYCIN 1 GM in IV D5W 250 ML IV ONE (19:30)
--- NOTE | 2020-04-03 19:30 | NUR ---
CALLED NURSING SUP FOR TELE BED.
[2020-04-03] MEDS ORDERED: VANCOMYCIN 1 GM VIAL ONE (19:35)
--- NOTE | 2020-04-03 19:54 | NUR ---
JOSELYN, PT'S SISTER
[2020-04-03] MEDS ORDERED: DEXTROSE 50%-WATER 50 ML DISP.SYRIN IV PRN (20:00)
--- NOTE | 2020-04-03 20:37 | NUR ---
ATTEMPTED TO GIVE REPORT, NURSE NOT AVAILABLE
--- NOTE | 2020-04-03 20:44 | NUR ---
REPORT GIVEN TO KEVIN KRAMER FOR THONG
[2020-04-03] MEDS ORDERED: ACETAMINOPHEN 650 MG/SUPP.RECT RC ONE (20:57)
[2020-04-03 20:58] LABS: ABG OXYGEN SATURATION 96.7 % (92.0-98.5); ABG PCO2 48.4 mmHg (35.0-45.0); ABG PH 7.429 (7.350-7.450); ABG PO2 103.3 mmHg (75.0-100.0); AaDO2 97.2 mmHg; COHb 0.3 % (0.5-1.5); MetHb 0.5 % (0.0-1.5); O2Hb 95.9 % (94.0-97.0); SITE, ABG Right Radial; VENT MODE, BG T-PIECE ON 4 LPM
[2020-04-03] MEDS ORDERED: VANCOMYCIN 500 MG in IV D5W 100ml IV ONE (21:00)
[2020-04-03] MEDS: ACETAMINOPHEN 650 MG/SUPP.RECT RC PRN (21:00)
--- NOTE | 2020-04-03 21:13 | NUR ---
PT TRANSFERRED TO ROOM 113 VIA ACLS PROTOCOL
--- NOTE | 2020-04-03 21:13 | NUR ---
RN NOTE RECEIVED PT FROM ER VIA JOSEFINA ACCOMPANIED BY RN AND EMT. PT CURRENTLY ON TRACH PIECE CONNECTED TO 5L OF O2. PT IS OBTUNDED BUT PHYSICALLY RESPONSIVE TO VERBAL AND TACTILE STIMULI. RESPIRATIONS EVEN AND UNLABORED. NO SIGNS OF DISCOMFORT. SKIN WARM TO TOUCH, COMPREHENSIVE PHYSICAL ASSESSMENT COMPLETED. WITH RIGHT AC 20G IV FLUSHED AND PATENT. IRIZARRY CATHETER IN PLACE DRAINING URINE, WITH GT CLAMPED AT THIS TIME BUT PLACEMENT VERIFIED VIA AUSCULTATION. PT WITH COPIOUS AMOUNT OF THICK YELLOW SECRETIONS. SUCTIONED VIA TRACH AND ORAL. CLEAN UP HELPER BANQUET PLACED SHOWING SINUS TACHYCARDIA. SAFETY MEASURES IN PLACE PER PROTOCOL, BED LOCKED AND IN LOW POSITION, SIDE RAILS UP X 2, BED ALARM ON, WILL MONITOR PATIENT AND CARRY OUT ACTIVE MD ORDERS.
[2020-04-03 21:15] VITALS: BP 107/64
--- NOTE | 2020-04-03 21:20 | NUR ---
RN NOTE NO BELONGINGS NOTED WITH PT.
[2020-04-03] MEDS: IV D5W 1,000 ML IV PRN (21:55)
[2020-04-03] MEDS ORDERED: BLOOD SUGAR DIAGNOSTIC 1 EACH STRIP IN SCH (22:00)
[2020-04-03] MEDS: ENOXAPARIN SODIUM 40 MG/0.4 ML DISP.SYRIN SQ SCH (22:09)
[2020-04-03] MEDS ORDERED: IV NS 0.9% 500 ML IV ONE (23:30)
--- NOTE | 2020-04-03 23:36 | NUR ---
RN NOTE TUBE FEEDING STARTED AT 40ML/HOUR. WILL INCREASE FEEDING TOLERATED TO REACH GOAL OF 90ML/HOUR.
[2020-04-03] MEDS: GLUCERNA 1.2 1,000 ML BOTTLE GT PRN (23:46)
[2020-04-03] MEDS: INSULIN REGULAR, HUMAN 100 UNIT/ML 3 ML VIAL SQ PRN (23:58)
[2020-04-04] VITALS: BP 95/65
[2020-04-04] MEDS ORDERED: PIPERACILLIN /TAZOBACTAM 3.375 G in IV D5W 50 ML IV SCH ×2
[2020-04-04] MEDS: BLOOD SUGAR DIAGNOSTIC 1 EACH STRIP IN SCH ×4 (00:21→17:05)
[2020-04-04] MEDS: ZOSYN IVPB 4.5 G in IV D5W 50ml IV SCH ×4 (00:44→17:05)
--- NOTE | 2020-04-04 03:08 | NUR ---
RN NOTE SPOKE TO JOSELYN (SISTER) AND GAVE UPDATE ON PT'S STATUS AND PLAN OF CARE.
[2020-04-04 04:00] VITALS: BP 102/74
[2020-04-04] MEDS: VANCOMYCIN HCL 0.75 GM in IV D5W 250 ML IV SCH ×3 (04:08→20:06)
[2020-04-04] MEDS: INSULIN REGULAR, HUMAN 100 UNIT/ML 3 ML VIAL SQ PRN ×4 (05:18→23:43)
[2020-04-04 06:01] LABS: BASOPHILS % (AUTO) 0.1 % (0.0-2.0); EOSINOPHILS % (AUTO) 2.5 % (0.0-6.0); HEMATOCRIT 39 % (39-51); HEMOGLOBIN 12.3 g/dL (13.5-17.5); LYMPHOCYTES # (AUTO) 0.7 /CMM (0.8-4.8); LYMPHOCYTES % (AUTO) 8.7 % (20.0-44.0); MEAN CORPUSCULAR HGB CONC 32 g/dl (31.0-36.0); MEAN CORPUSCULAR VOLUME 88 fL (80-96); MONOCYTES # (AUTO) 0.5 /CMM (0.1-1.30); MONOCYTES % (AUTO) 6.7 % (2.0-12.0); NEUTROPHILS # (AUTO) 6.3 /CMM (1.8-8.9); PLATELET COUNT (AUTO) 173 /CMM (150-450); RED BLOOD CELL COUNT(AUTO) 4.44 MIL/uL (4.5-6.0); WHITE BLOOD COUNT (AUTO) 7.7 K/uL (4.3-11.0)
--- NOTE | 2020-04-04 06:41 | NUR ---
RN NOTE NO CHANGES OBSERVED SINCE PT ADMISSION. PT CURRENTLY ON TRACH PIECE CONNECTED TO 4L OF O2. PT OBTUNDED BUT PHYSICALLY RESPONSIVE TO VERBAL AND TACTILE STIMULI. RESPIRATIONS EVEN AND UNLABORED. NO SIGNS OF DISCOMFORT. WITH RIGHT AC 20G IV FLUSHED AND PATENT. IRIZARRY CATHETER IN PLACE DRAINING URINE VIA GRAVITY, WITH GT FEEDING (GLUCERNA 1.2) RUNNING AT 65ML/HOUR WITH GOAL OF 90ML/HOUR X 20 HOURS. ORAL CARE DONE. PT SUCTIONED. MUSIC INTERN SHOWING SINUS TACHYCARDIA. SAFETY MEASURES IN PLACE, BED LOCKED AND IN LOW POSITION, SIDE RAILS UP X 2, BED ALARM ON, WILL ENDORSE TO MORNING RN FOR THONG.
[2020-04-04 07:04] LABS: ALBUMIN 2.5 g/dL (3.4-5.0); BILIRUBIN,TOTAL 0.4 mg/dL (0.2-1.0); CALCIUM, SERUM 8.7 mg/dL (8.5-10.1); MAGNESIUM 2.3 mg/dL (1.8-2.4); PHOSPHORUS 2.6 mg/dL (2.5-4.9); POTASSIUM 3.6 mmol/L (3.5-5.1); TOTAL PROTEIN, SERUM 7.5 g/dL (6.4-8.2)
[2020-04-04 07:21] LABS: THYROID STIMULATING HORMONE 2.037 uIU/mL (0.358-3.74)
--- NOTE | 2020-04-04 07:55 | NUR ---
RN OPENING NOTE RECEIVED PATIENT RESTING IN BED COMFORTABLY. PT CURRENTLY ON TRACH PIECE CONNECTED TO 4L OF O2. RESPIRATIONS EVEN AND UNLABORED. NO SIGNS OF DISCOMFORT. WITH RIGHT AC 20G IV FLUSHED AND PATENT. IRIZARRY CATHETER IN PLACE DRAINING VIA GRAVITY, WITH GT FEEDING (GLUCERNA 1.2) RUNNING AT 65ML/HR. TYPE COPY EXAMINER SHOWING SINUS TACHYCARDIA. SAFETY MEASURES IN PLACE, BED LOCKED AND IN LOW POSITION, SIDE RAILS UP X 2, BED ALARM ON, WILL CONTINUE TO MONITOR.
[2020-04-04 08:00] VITALS: BP 96/70
[2020-04-04 12:00] VITALS: BP 105/73
[2020-04-04] MEDS: ACETAMINOPHEN 650 MG/SUPP.RECT RC PRN ×2 (14:30→14:38)
--- NOTE | 2020-04-04 14:38 | NUR ---
BUILDING CONSULTANT NOTE PATIENT HR WENT TO 122. PT WAS SUCTIONED AND HR DECREASED TO 100. TEMP 100.3, SUPPOSITORY TYLENOL 325MG GIVEN.
[2020-04-04 16:00] VITALS: BP 100/68
[2020-04-04] MEDS: GLUCERNA 1.2 1,000 ML BOTTLE GT PRN (17:19)
--- NOTE | 2020-04-04 18:06 | NUR ---
INDUSTRIAL ECONOMICS TEACHER CLOSING NOTE PT RESTING IN BED. PT CURRENTLY ON TRACH PIECE CONNECTED TO 4L OF O2. PT OBTUNDED BUT PHYSICALLY RESPONSIVE TO TACTILE STIMULI. RESPIRATIONS EVEN AND UNLABORED. NO SIGNS OF DISCOMFORT. RIGHT AC 20G IV FLUSHED AND PATENT. RUNNING D5W @ 75ML. IRIZARRY CATHETER IN PLACE DRAINING URINE VIA GRAVITY, WITH GT FEEDING (GLUCERNA 1.2) RUNNING AT 65ML/HOUR. PT SUCTIONED. PEARL PELLER SHOWING SINUS TACHYCARDIA. SAFETY MEASURES IN PLACE, BED LOCKED AND IN LOW POSITION, SIDE RAILS UP X 2, BED ALARM ON, WILL ENDORSE TO ONCOMING SHIFT.
[2020-04-04] MEDS: IV D5W 1,000 ML IV PRN (18:43)
--- NOTE | 2020-04-04 19:26 | NUR ---
RN NOTE RECEIVED PT OBTUNDED IN BED WITH HEAD OF BED ELEVATED. CURRENTLY ON TRACH PIECE CONNECTED TO 4L OF O2. PHYSICALLY RESPONSIVE TO VERBAL AND TACTILE STIMULI. RESPIRATIONS EVEN AND UNLABORED. NO SIGNS OF DISCOMFORT. WITH RIGHT AC 20G IV FLUSHED AND PATENT WITH D5W RUNNING AT 75ML/HOUR. IRIZARRY CATHETER IN PLACE DRAINING URINE VIA GRAVITY, WITH GT FEEDING (GLUCERNA 1.2) RUNNING AT 65ML/HOUR WITH GOAL OF 90ML/HOUR X 20 HOURS. ORAL CARE DONE. PT SUCTIONED ORALLY AND VIA TRACH. MUD CAR WORKER SHOWING SINUS TACHYCARDIA. PT O2 SATURATION 100% VIA CONTINUOUS PULSE OXIMETRY. SAFETY MEASURES IN PLACE, BED LOCKED AND IN LOW POSITION, SIDE RAILS UP X 2, BED ALARM ON, WILL MONITOR PATIENT AND CARRY OUT ACTIVE MD ORDERS.
--- NOTE | 2020-04-04 19:30 | NUR ---
RN NOTE NOTED TUBE FEEDING ORDER IS FOR 20 HOURS. PAUSED AT THIS TIME. WILL RESUME AT 2300.
[2020-04-04] MEDS: ENOXAPARIN SODIUM 40 MG/0.4 ML DISP.SYRIN SQ SCH (19:45)
[2020-04-04 20:00] VITALS: BP 120/91
--- NOTE | 2020-04-04 23:00 | NUR ---
RN NOTE TUBE FEEDING RESUMED ORDERED @ 65ML/HOUR.
[2020-04-05] VITALS: BP 114/82
[2020-04-05] MEDS: ZOSYN IVPB 4.5 G in IV D5W 50ml IV SCH ×5 (00:07→23:51)
[2020-04-05] MEDS: BLOOD SUGAR DIAGNOSTIC 1 EACH STRIP IN SCH ×5 (01:04→23:47)
[2020-04-05] MEDS: IV D5W 1,000 ML IV PRN ×2 (02:54→18:27)
[2020-04-05 04:00] VITALS: BP 120/86
--- NOTE | 2020-04-05 04:00 | NUR ---
RN NOTE IV ON RIGHT AC NOTED TO BE INFILTRATED. IV REMOVE AND PRESSURE APPLIED OT SITE. NO BLEEDING NOTED. INSERTED 24G IV ON RIGHT HAND. PATENT AND FLUSHING WELL.
[2020-04-05] MEDS: VANCOMYCIN HCL 0.75 GM in IV D5W 250 ML IV SCH ×2 (04:28→12:38)
[2020-04-05] MEDS: INSULIN REGULAR, HUMAN 100 UNIT/ML 3 ML VIAL SQ PRN ×4 (05:39→23:49)
--- NOTE | 2020-04-05 06:47 | NUR ---
RN NOTE NO CHANGES OBSERVED OVERNIGHT. OBTUNDED IN BED WITH HEAD OF BED ELEVATED. CURRENTLY ON TRACH PIECE CONNECTED TO 4L OF O2. PHYSICALLY RESPONSIVE TO STIMULI. RESPIRATIONS EVEN AND UNLABORED. NO SIGNS OF DISCOMFORT. WITH RIGHT RIGHT HAND 24G IV FLUSHED AND PATENT WITH D5W RUNNING AT 75ML/HOUR. NO COMPLICATIONS NOTED AT SITE. IRIZARRY CATHETER IN PLACE DRAINING URINE VIA GRAVITY, WITH GT FEEDING (GLUCERNA 1.2) RUNNING AT 65ML/HOUR WITH GOAL OF 90ML/HOUR X 20 HOURS. MANAGER GENERAL SHOWING SINUS TACHYCARDIA. PT O2 SATURATION 100% VIA CONTINUOUS PULSE OXIMETRY. SAFETY MEASURES IN PLACE, BED LOCKED AND IN LOW POSITION, SIDE RAILS UP X 2, BED ALARM ON, WILL ENDORSE TO MORNING RN FOR THONG.
--- NOTE | 2020-04-05 07:45 | NUR ---
telephone coin box collector note patient in bed obtunded both eye open , response to tactile stimuli, on tele monitor st hr 102 at this time, with gtube feeding as ordered, keep hob elevated at all time, on ivf as ordered , rt hand hl intact lea 24 ,on ivf and atb unable to insert new hl Lea 22, mid line ordered,bed in lowest and locked position , with trach to r peice 4l ,saturation 100% at this time,bed in lowest and locked position , will cont to monitor
[2020-04-05 07:52] LABS: ALBUMIN 2.5 g/dL (3.4-5.0); BILIRUBIN,TOTAL 0.3 mg/dL (0.2-1.0); CALCIUM, SERUM 9.1 mg/dL (8.5-10.1); CREATININE 0.9 mg/dL (0.6-1.3); MAGNESIUM 2.2 mg/dL (1.8-2.4); PHOSPHORUS 2.8 mg/dL (2.5-4.9); POTASSIUM 4.1 mmol/L (3.5-5.1); TOTAL PROTEIN, SERUM 7.8 g/dL (6.4-8.2)
[2020-04-05 08:00] VITALS: BP 106/73
[2020-04-05] MEDS ORDERED: DEXTROSE 50%-WATER 50 ML DISP.SYRIN IV PRN (10:30)
--- NOTE | 2020-04-05 11:02 | NUR ---
telehealth director note dr torrey Sotelo at bedside aware troponin 0.093 at this time blood sugar. last time was 281 mg\dl will insert mid line ,patient is hard stick to insert bigger hl cath
[2020-04-05 11:51] LABS: BASOPHILS % (AUTO) 0.7 % (0.0-2.0); HEMATOCRIT 36 % (39-51); HEMOGLOBIN 11.4 g/dL (13.5-17.5); LYMPHOCYTES # (AUTO) 0.5 /CMM (0.8-4.8); LYMPHOCYTES % (AUTO) 10.2 % (20.0-44.0); MEAN CORPUSCULAR HGB CONC 32 g/dl (31.0-36.0); MEAN CORPUSCULAR VOLUME 87 fL (80-96); MONOCYTES # (AUTO) 0.5 /CMM (0.1-1.30); MONOCYTES % (AUTO) 8.8 % (2.0-12.0); NEUTROPHILS # (AUTO) 3.9 /CMM (1.8-8.9); NEUTROPHILS % (AUTO) 73.3 % (43.0-81.0); PLATELET COUNT (AUTO) 163 /CMM (150-450); RED BLOOD CELL COUNT(AUTO) 4.18 MIL/uL (4.5-6.0); WHITE BLOOD COUNT (AUTO) 5.3 K/uL (4.3-11.0)
[2020-04-05 12:00] VITALS: BP 105/74
[2020-04-05] MEDS: GLUCERNA 1.2 1,000 ML BOTTLE GT PRN (12:43)
--- NOTE | 2020-04-05 12:46 | NUR ---
telecom billing analyst note kayceeo level 20, per pharmacy ok to give vancomycin
--- NOTE | 2020-04-05 15:00 | NUR ---
telemarketing fundraiser note mid line placed by picc line nurse on lt upper arm ,j carlos 18 , cont on ivf as ordered
[2020-04-05 16:00] VITALS: BP 103/71
--- NOTE | 2020-04-05 16:00 | NUR ---
SCHOOL HEALTH ASSISTANT NOTE INCREASED G TUBE FEEDING AT 70 ML PER HOUR ,TOLERATED WELL, NO RESIDUAL NOTED , KEEP HOB ELEVATED AT ALL TIME
--- NOTE | 2020-04-05 19:17 | NUR ---
maintenance mechanic telephone note cont on g tube feeding as ordered ,keep hob elevated at all time. on ivf as ordered , not in distress
--- NOTE | 2020-04-05 19:20 | NUR ---
RN OPENING NOTE RECEIVED PATIENT IN BED RESTING OBTUNDED OPEN EYES ON TRACH SHIELY ON 4L OXYGEN O2:100%,IV SITE IS ON LEFT UPPER ARM MIDLINE INTACT PATENT,ON D5W IV HYDRATION 75CC/HR ON G-TUBE GLUCERNA 1.2 70CC/HR CHECKED PLACEMENT IN PLACE NO RESIDUAL NOTED,HEAD OF THE BED ELEVATED,IRIZARRY CATHETER IN PLACE URINE DRAINING YELLOW AND CLEAR,BY GRAVITY,SAFETY MEASURE IMPLEMENT CONTINUE TO MONITOR.
[2020-04-05] MEDS: ENOXAPARIN SODIUM 40 MG/0.4 ML DISP.SYRIN SQ SCH (19:36)
[2020-04-05 20:00] VITALS: BP 100/67
[2020-04-05] MEDS: ATORVASTATIN 10 MG TABLET GT SCH (21:38)
[2020-04-06] VITALS: BP 94/62
[2020-04-06] MEDS: VANCOMYCIN 1 GM in IV D5W 250 ML IV SCH ×2 (01:07→13:37)
[2020-04-06 04:00] VITALS: BP 107/81
[2020-04-06] MEDS: ZOSYN IVPB 4.5 G in IV D5W 50ml IV SCH ×4 (05:05→23:51)
[2020-04-06] MEDS: BLOOD SUGAR DIAGNOSTIC 1 EACH STRIP IN SCH ×4 (05:23→23:45)
[2020-04-06] MEDS: INSULIN REGULAR, HUMAN 100 UNIT/ML 3 ML VIAL SQ PRN ×5 (05:27→23:49)
[2020-04-06 06:04] LABS: CALCIUM, SERUM 8.5 mg/dL (8.5-10.1); CREATININE 0.8 mg/dL (0.6-1.3); POTASSIUM 3.3 mmol/L (3.5-5.1)
--- NOTE | 2020-04-06 06:59 | NUR ---
RN CLOSING NOTE PATIENT REMAINS ON OBTUNDED,ON TRSCH SHILEY ON 4L OXYGEN NO SOB NOT ACUTE DISTRESS NOTED,ALL DUE MEDS GIVEN MD ORDERED ON IV D5W 75CC/HR IV SITE IS ON LEFT UPPER ARM MIDLINE AND RIGHT HAND ON G-TUBE FEEDING GLUCERNA 1.2 70CC/HR NO RESIDUAL NOTED HEAD OF BED ELEVATED ALL THE TIME,IRIZARRY CATHETER IN PLACE KEPT CLEAN AND DRY ALL THE TIME,KEPT COMFORTABLE ENDORSE NEXT COMING SHIFT FOR CONTINUATION OF CARE.
--- NOTE | 2020-04-06 07:30 | NUR ---
RN OPENING NOTE PT LYING IN BED, OBTUNDED, ON NC AT TRACH 4LPM, SPO2 100%, NO SIGNS OF RESP DISTRESS OR SOB, PT SUCTIONED VIA TRACH. PT HAS LT MIDLINE INFUSING D5W @ 75ML/HR, MIDLINE FLUSHED AND PATENT, NO SIGNS OF INFECTION OR INFILTRATION. PT HAS RT HAND IV ACCESS, FLUSHED AND PATENT, SLIGHT RT HAND SWELLING NOTED, NO SIGN OF INFECTION OR INFILTRATION. PT HAS GTUBE RUNNING GLUCERNA 1.2 @ 70ML/HR, GTUBE AUSCULTATED FOR POSITIVE PLACEMENT, NO RESIDUALS, AND FLUSHED 200ML FOR PATENCY. PT IRIZARRY CATH DRAINING TO GRAVITY, CLEAR FRANKLYN URINE, PATENT AND INTACT. ALL SAFETY PRECAUTIONS IN PLACE. WILL CONT TO MONITOR
[2020-04-06 08:00] VITALS: BP 110/79
[2020-04-06 08:06] LABS: PTH, INTACT 24 pg/mL (15-65)
--- NOTE | 2020-04-06 08:53 | NUR ---
WOUND CARE CONSULT: PT PRESENTS WITH SACRAL SCARRING, DISCOLORATION/SCARRING TO BILATERAL HIPS, REDNESS TO PENIS AND PERINEUM, SCARRING TO LOWER LEGS WITH OPEN WOUND TO LEFT LOWER LEG, PRESENT ON ADMISSION. DR GOMEZ CALLED FOR DPM CONSULT. RECOMMENDATIONS MADE FOR SKIN PROTECTION. DISCUSSED WITH NURSING STAFF. FIRST STEP LOW AIRLOSS MATTRESS IS ORDERED. MD IN AGREEMENT WITH PLAN OF CARE. Addendum: 04/06/20 at 0856 by OTONIEL PRESTON WNDNU Amended: Links added.
[2020-04-06] MEDS: Z GUARD REMEDY 2 OZ OINT TP SCH (09:00)
[2020-04-06] MEDS ORDERED: Z GUARD REMEDY 2 OZ OINT TP PRN (09:00)
--- NOTE | 2020-04-06 09:45 | NUR ---
RN NOTE SPOKE WITH PT'S SISTER JOSELYN. ALL QUESTIONS REGARDING PT STATUS.CAARE ANSWERED TO HER COMPLETE SATISFACTION
[2020-04-06] MEDS ORDERED: POTASSIUM CHLORIDE 20 MEQ POWDER PACKET GT SCH (10:00)
[2020-04-06] MEDS: GLUCERNA 1.2 1,000 ML BOTTLE GT PRN (10:17)
[2020-04-06] MEDS: CLOTRIMAZOLE 1% 15 GM TUBE TP SCH ×2 (10:18→17:15)
[2020-04-06] MEDS: ACETYLCYSTEINE 10% SOLN 400 MG/4 ML VIAL NEB SCH ×2 (11:45→16:49)
[2020-04-06] MEDS: IPRATROPIUM NEB FS 0.5 MG/2.5 ML AMPUL.NEB NEB SCH ×3 (11:46→20:29)
[2020-04-06] MEDS: ALBUTEROL HALF STRENGTH 1.25 MG/3 ML VIAL.NEB NEB SCH ×3 (11:46→20:29)
[2020-04-06 12:00] VITALS: BP 101/74
[2020-04-06 16:00] VITALS: BP 96/70
--- NOTE | 2020-04-06 18:51 | NUR ---
RN CLOSING NOTE NO CHANGES TO PT DURING SHIFT. PT IN STABLE CONDITION, NO SIGNS OF RESP DISTRESS OR SOB. PT TOLERATING TUBE FEED WELL. PT REQUIRES FREQUENT SUCTIONING. ALL PT SAFETY PRECAUTIONS IN PLACE. WILL ENDORSE THONG TO ONCOMING RN
--- NOTE | 2020-04-06 19:10 | NUR ---
RN CLOSING NOTE RECEIVED PATIENT IN BED RESTING OBTUNDED ON TRACH SHILEY 6L OXYGEN FIO2 28% O2:98% HR 100-102,IV LINE IS ON LEFT MIDLINE INTACT PATENT AND RIGHT HAND PATENT INTACT,ON G-TUBE FEEDING GLUCERNA 1.2 70CC/HR GOAL IS 90CC/HR CHECKED PLACEMENT IN PLACE NO RESIDUAL NOTED,HEAD OF THE BED ELEVATED,ON IRIZARRY CATHETER,IN PLACE URINE DRAINING,YELLOW AND CLEAR BY GRAVITY,SAFETY MEASURE IMPLEMENT BED IN LOW POSITON AND LOCKED CONTINUE TO MONITOR. Addendum: 04/06/20 at 2002 by NATHAN DUGAN RN PLS DISREGARD THIS DOCUMENTATION IS WRONG DOCUMENTATION.
[2020-04-06] MEDS: ENOXAPARIN SODIUM 40 MG/0.4 ML DISP.SYRIN SQ SCH (19:38)
[2020-04-06 20:00] VITALS: BP 108/79
[2020-04-06] MEDS: ATORVASTATIN 10 MG TABLET GT SCH (22:07)
[2020-04-07] VITALS: BP 112/79
[2020-04-07] MEDS: VANCOMYCIN 1 GM in IV D5W 250 ML IV SCH ×2 (01:11→13:28)
[2020-04-07] MEDS: ALBUTEROL HALF STRENGTH 1.25 MG/3 ML VIAL.NEB NEB SCH ×7 (01:22→23:30)
[2020-04-07] MEDS: IPRATROPIUM NEB FS 0.5 MG/2.5 ML AMPUL.NEB NEB SCH ×7 (01:22→23:30)
[2020-04-07] MEDS: ACETYLCYSTEINE 10% SOLN 400 MG/4 ML VIAL NEB SCH ×4 (01:22→23:31)
[2020-04-07 04:00] VITALS: BP 103/79
[2020-04-07] MEDS: ZOSYN IVPB 4.5 G in IV D5W 50ml IV SCH ×3 (05:02→17:31)
[2020-04-07] MEDS: BLOOD SUGAR DIAGNOSTIC 1 EACH STRIP IN SCH ×3 (05:36→17:28)
[2020-04-07] MEDS: INSULIN REGULAR, HUMAN 100 UNIT/ML 3 ML VIAL SQ PRN ×3 (05:40→17:30)
--- NOTE | 2020-04-07 06:51 | NUR ---
RN CLOSING NOTED PATIENT REMAINS ON OBTUNDED ON TRACH SHILEY 6L OXYGEN WITH A LOT OF SECRETION,SUCTION DONE,O2:98-100% HR 100-112 IV SITE IS ON LEFT UPPER ARM MIDLINE INTACT PATENT,AND RIGHT HAND INTACT PATENT,G-TUBE IN PLACE CHECKED PLACEMENT IN PLACE NO RESIDUAL,HEAD OF THE BED ELEVATED,IRIZARRY CATHETER IN PLACE,URINE DRAINING YELLOW/CLEAR BY GRAVITY,ALL DUE MEDS GIVEN MD ORDERED KEPT CLEAN AND DRY ALL THE TIME,REPOSITIONED EVERY 2HOURS, IMPLEMENTED SAFETY MEASURE,ALL NEEDS MET ENDORSE NEXT COMING SHIFT FOR CONTINUATION OF CARE.
[2020-04-07 07:13] LABS: CALCIUM, SERUM 8.8 mg/dL (8.5-10.1); CREATININE 0.9 mg/dL (0.6-1.3); POTASSIUM 3.6 mmol/L (3.5-5.1)
--- NOTE | 2020-04-07 07:30 | NUR ---
RN OPENING NOTE PT LYING IN BED SEMIFOWLERS, OBTUNDED, ON NC AT TRACH 6LPM, SPO2 100%, NO SIGNS OF RESP DISTRESS OR SOB, PT SUCTIONED VIA TRACH. PT HAS JAMESON MIDLINE SL FLUSHED AND PATENT, NO SIGNS OF INFECTION OR INFILTRATION. PT HAS RT HAND IV ACCESS, FLUSHED AND PATENT, SLIGHT RT HAND SWELLING NOTED, NO SIGN OF INFECTION OR INFILTRATION. PT HAS GTUBE RUNNING GLUCERNA 1.2 @ 70ML/HR, GTUBE AUSCULTATED FOR POSITIVE PLACEMENT, NO RESIDUALS, AND FLUSHED 200ML FOR PATENCY. PT IRIZARRY CATH DRAINING TO GRAVITY, CLEAR FRANKLYN URINE, PATENT AND INTACT. ALL SAFETY PRECAUTIONS IN PLACE. WILL CONT TO MONITOR
[2020-04-07 08:00] VITALS: BP 98/65
[2020-04-07] MEDS: CLOTRIMAZOLE 1% 15 GM TUBE TP SCH ×2 (09:38→17:27)
[2020-04-07] MEDS: Z GUARD REMEDY 2 OZ OINT TP SCH (09:38)
[2020-04-07] MEDS: THERAHONEY GEL 1.5 OZ TUBE TP SCH (10:09)
[2020-04-07 12:07] LABS: *SPE A/G RATIO 0.6 (0.7-1.7); *SPE ALBUMIN 2.8 g/dL (2.9-4.4); *SPE ALPHA-1-GLOBULIN 0.3 g/dL (0.0-0.4); *SPE ALPHA-2-GLOBULIN 1.1 g/dL (0.4-1.0); *SPE BETA GLOBULIN 1.2 g/dL (0.7-1.3); *SPE GLOBULIN, TOTAL 4.6 g/dL (2.2-3.9); *SPE M-SPIKE Not Observed g/dL (Not Observed)
[2020-04-07 16:00] VITALS: BP 96/63
--- NOTE | 2020-04-07 19:00 | NUR ---
RN CLOSING NOTE NO CHANGES TO PT STATUS DURING SHIFT, PT IN STABLE CONDITION. FREQUENT SUCTIONING REQUIRED, KEEP HOB AT LEAST 30 DEGREES ELEVATED. TRACH PT ON 6 LPM NC VIA T-PIECE, SPO2 OF 100%, NO SIGNS OF RESP DISTRESS RO SOB. PT TOLERATING GTUBE FEED AT 70ML/HR WELL. ALL PT SAFETY PRECAUTIONS IN PLACE. WILL ENDORSE THONG TO ONCOMING RN
[2020-04-07 20:00] VITALS: BP 91/62
[2020-04-07] MEDS: ENOXAPARIN SODIUM 40 MG/0.4 ML DISP.SYRIN SQ SCH (20:00)
--- NOTE | 2020-04-07 20:03 | NUR ---
RN NOTE PATIENT IN BED WITH HEAD OF BED ELEVATED, OBTUNDED. ON NC AT TRACH 6 LPM, O2 SAT WNL. PATIENT HAD JAMESON MIDLINE PATENT AND INTACT. PT HAS G-TUBE RUNNING GLUCERNA 1.2 @ 70ML/HR, GTUBE PLACEMENT CHECKED AND VERIFIED. IRIZARRY CATH DRAINING TO GRAVITY FRANKLYN URINE. SAFETY MEASURES IN PLACE. BED LOCKED AND IN LOWEST POSITION. CALL LIGHT WITHIN REACH. WILL CONTINUE TO MONITOR.
[2020-04-07] MEDS: ATORVASTATIN 10 MG TABLET GT SCH (21:28)
[2020-04-08] VITALS: BP 96/65
[2020-04-08] MEDS: BLOOD SUGAR DIAGNOSTIC 1 EACH STRIP IN SCH ×4 (00:07→17:23)
[2020-04-08] MEDS: ZOSYN IVPB 4.5 G in IV D5W 50ml IV SCH ×3 (00:10→12:41)
[2020-04-08] MEDS: INSULIN REGULAR, HUMAN 100 UNIT/ML 3 ML VIAL SQ PRN ×4 (00:13→17:25)
[2020-04-08] MEDS: VANCOMYCIN 1 GM in IV D5W 250 ML IV SCH ×2 (00:46→12:41)
[2020-04-08] MEDS: IPRATROPIUM NEB FS 0.5 MG/2.5 ML AMPUL.NEB NEB SCH ×4 (03:41→15:03)
[2020-04-08] MEDS: ALBUTEROL HALF STRENGTH 1.25 MG/3 ML VIAL.NEB NEB SCH ×4 (03:41→15:03)
[2020-04-08 04:00] VITALS: BP 98/69
[2020-04-08] MEDS: GLUCERNA 1.2 1,000 ML BOTTLE GT PRN (05:45)
[2020-04-08 06:50] LABS: CALCIUM, SERUM 8.6 mg/dL (8.5-10.1); CREATININE 0.7 mg/dL (0.6-1.3); POTASSIUM 3.5 mmol/L (3.5-5.1)
--- NOTE | 2020-04-08 06:56 | NUR ---
RN NOTE PATIENT IN BED WITH HEAD OF BED ELEVATED, OBTUNDED. ON NC AT TRACH 6 LPM, O2 SAT 100%. PATIENT HAD JAMESON MIDLINE PATENT AND INTACT. PT HAS G-TUBE RUNNING GLUCERNA 1.2 @ 70ML/HR, GTUBE PLACEMENT CHECKED AND VERIFIED. IRIZARRY CATH DRAINING TO GRAVITY FRANKLYN URINE OUTPUT OF 900CC. ALL DUE MEDS GIVEN ORDERED. TURNED AND REPOSITIONED. SAFETY MEASURES IN PLACE. BED LOCKED AND IN LOWEST POSITION. CALL LIGHT WITHIN REACH. WILL ENDORSE TO ONCOMING SHIFT.
--- NOTE | 2020-04-08 07:30 | NUR ---
RN OPENING NOTE PT LYING IN BED SEMIFOWLERS, OBTUNDED, ON NC AT TRACH 6LPM, SPO2 98%, NO SIGNS OF RESP DISTRESS OR SOB, PT SUCTIONED VIA TRACH. PT HAS JAMESON MIDLINE RUNNING NS TKO, FLUSHED AND PATENT, NO SIGNS OF INFECTION OR INFILTRATION. PT HAS RT HAND IV ACCESS, FLUSHED AND PATENT, SLIGHT RT HAND SWELLING NOTED, NO SIGN OF INFECTION OR INFILTRATION. PT HAS GTUBE RUNNING GLUCERNA 1.2 @ 70ML/HR, GTUBE AUSCULTATED FOR POSITIVE PLACEMENT, 20CC RESIDUALS, AND FLUSHED 200ML FOR PATENCY. PT IRIZARRY CATH DRAINING TO GRAVITY, CLEAR FRANKLYN URINE, PATENT AND INTACT. ALL SAFETY PRECAUTIONS IN PLACE. WILL CONT TO MONITOR
[2020-04-08 08:00] VITALS: BP 96/57
[2020-04-08] MEDS: ACETYLCYSTEINE 10% SOLN 400 MG/4 ML VIAL NEB SCH ×2 (08:28→15:03)
[2020-04-08] MEDS: Z GUARD REMEDY 2 OZ OINT TP SCH (08:58)
[2020-04-08] MEDS: CLOTRIMAZOLE 1% 15 GM TUBE TP SCH ×2 (08:58→17:33)
[2020-04-08] MEDS: THERAHONEY GEL 1.5 OZ TUBE TP SCH (08:58)
[2020-04-08 09:19] LABS: BASOPHILS % (AUTO) 0.4 % (0.0-2.0); EOSINOPHILS % (AUTO) 4.5 % (0.0-6.0); HEMATOCRIT 33 % (39-51); HEMOGLOBIN 10.5 g/dL (13.5-17.5); LYMPHOCYTES # (AUTO) 1.1 /CMM (0.8-4.8); LYMPHOCYTES % (AUTO) 19.4 % (20.0-44.0); MEAN CORPUSCULAR HGB CONC 32 g/dl (31.0-36.0); MEAN CORPUSCULAR VOLUME 86 fL (80-96); MONOCYTES # (AUTO) 0.5 /CMM (0.1-1.30); MONOCYTES % (AUTO) 9.8 % (2.0-12.0); NEUTROPHILS # (AUTO) 3.7 /CMM (1.8-8.9); NEUTROPHILS % (AUTO) 65.9 % (43.0-81.0); PLATELET COUNT (AUTO) 190 /CMM (150-450); WHITE BLOOD COUNT (AUTO) 5.6 K/uL (4.3-11.0)
--- NOTE | 2020-04-08 16:30 | NUR ---
RN NOTE PT REPORT GIVEN TO KEVIN MCFADDEN AT [facility] FOR THONG OF CARE
--- NOTE | 2020-04-08 17:47 | NUR ---
LINUX SERVER ADMINISTRATOR NOTE PT REPORT GIVEN TO EMT. PT IN STABLE CONDITION, SPO2 98% NO SIGNS OF RESP DISTRESS OR SOB. PT SUCTIONED PRIOR TO TRANSPORT.
== END 2020-04-08 17:38 | DRG 720 ==
LOC: ER 17:11 → TELE1 20:38 → MEDSG1 04-07 08:17
PROVIDERS: ADMIT Registered Nurse; ATTEND Nurse Practitioner Acute Care
PROC: 05HA33Z Insertion of Infusion Device into Left Brachial Vein, Percutaneous Approach (ICD-10-PCS; principal; 2020-04-06)
DX: A41.9 Sepsis, unspecified organism (principal); E87.2 Acidosis; J96.22 Acute and chronic respiratory failure with hypercapnia; Z20.822 Contact with and (suspected) exposure to COVID-19; J15.9 Unspecified bacterial pneumonia; D63.8 Anemia in other chronic diseases classified elsewhere; G92 Toxic encephalopathy; N17.0 Acute kidney failure with tubular necrosis; Z93.0 Tracheostomy status; Z93.1 Gastrostomy status; R13.10 Dysphagia, unspecified; D68.59 Other primary thrombophilia; E44.0 Moderate protein-calorie malnutrition; E78.5 Hyperlipidemia, unspecified; E88.81 Metabolic syndrome and other insulin resistance; F41.9 Anxiety disorder, unspecified; I69.30 Unspecified sequelae of cerebral infarction; Z79.4 Long term (current) use of insulin; Z79.82 Long term (current) use of aspirin; Z79.01 Long term (current) use of anticoagulants; Z79.899 Other long term (current) drug therapy; Z79.51 Long term (current) use of inhaled steroids; Y95 Nosocomial condition; E87.0 Hyperosmolality and hypernatremia; L97.929 Non-pressure chronic ulcer of unspecified part of left lower leg with unspecified severity; E11.622 Type 2 diabetes mellitus with other skin ulcer; R74.01 Elevation of levels of liver transaminase levels; E86.0 Dehydration; J98.11 Atelectasis; S91.311A Laceration without foreign body, right foot, initial encounter; X58.XXXA Exposure to other specified factors, initial encounter; Y92.129 Unspecified place in nursing home as the place of occurrence of the external cause; J15.6 Pneumonia due to other Gram-negative bacteria
CPT/HCPCS: 31720; 36410; 36415; 36600; 71045-TC; 80048-TC; 80053-TC; 80061-TC; 80076-TC; 80202-TC; 81001; 82550-TC; 82962-TC; 83605-TC; 83735-TC; 83880; 83970; 84100-TC; 84155; 84165; 84443-TC; 84484-TC; 85025-TC; 85730-TC; 87040-TC; 87081-TC; 87086-TC; 94640-TC; 94760-TC; 94762-TC; 94799-TC; A4623; C9803; G0378; J1650; J1815; J2543; J3370; J7050; J7060; J7070; U0003

== ENCOUNTER 2024-07-30 07:35 | Inpatient (IN) | payer MEDICAID ==
[~2024-07-30] VITALS: Ht 170.2 cm; Wt 91.6 kg
[2024-07-30] VITALS (8 sets, daily range): BP systolic 124–136; BP diastolic 91–92; TEMP 98.4–99.3; O2SAT 94–98
[~2024-07-30 07:35] MED LIST changes: +ACET-2605 PO; +ACET325T53 PO; +ASCO500C17 PO; +BISA10SU11 RC; -CALC-883 GT; +CHLO118L4 TP; +CHOL200013 PO; -GEMF600T90 GT; +INSU100V39 SQ; +MAGN400O6 GT; +NA P133E RC; +NUT.237L30 GT; -NUT.237L31 GT; -PHEN32.46 GT; +QUERCETIN PO; -SACC250C GT; +SENN-18 GT; -SIME80TA15 GT
[2024-07-30] MEDS ORDERED: ACETAMINOPHEN 650 MG/20.3 ML UDC ONE (07:50)
[2024-07-30] MEDS: ACETAMINOPHEN 650 MG/20.3 ML UDC GT ONE (07:56)
[2024-07-30 08:02] LABS: PLATELET COUNT (AUTO) 332 K/uL (150-450); RED BLOOD CELL COUNT(AUTO) 5.52 MIL/uL (4.5-6.0); RED CELL DISTRIBUTION WIDTH 17.6 % (11.5-15.0); WHITE BLOOD COUNT (AUTO) 19.1 K/uL (4.3-11.0)
[2024-07-30 08:11] LABS: CALCIUM, SERUM 9.4 mg/dL (8.5-10.1); CREATININE 0.9 mg/dL (0.6-1.3); SODIUM SERUM 138 mmol/L (136-145); UREA NITROGEN, BLOOD 15 mg/dL (7-18)
[2024-07-30 08:14] LABS: APPEARANCE,URINE CLEAR (CLEAR); BLOOD, URINE NEGATIVE Ery/uL (NEGATIVE); LEUKOCYTE ESTERASE ,URINE NEGATIVE (NEGATIVE); NITRITE, URINE NEGATIVE (NEGATIVE); UGLUCOSE NEGATIVE (NEGATIVE)
[2024-07-30 08:16] LABS: INR 1.03 (0.91-1.10)
[2024-07-30 08:17] LABS: ASPARTATE AMINOTRANSFERASE 21 U/L (15-37); TOTAL PROTEIN, SERUM 8.9 g/dL (6.4-8.2)
[2024-07-30 08:21] LABS: ADD URINE CULTURE NO
[2024-07-30 08:22] LABS: SQUAMOUS EPITHELIAL CELL,UR Rare /HPF (None Seen)
[2024-07-30 08:25] LABS: LACTIC ACID 1.4 mmol/L (0.4-2.0)
[2024-07-30] MEDS ORDERED: CLOT15CR35 TP (08:35)
[2024-07-30] MEDS ORDERED: OMEG1600 GT (08:35)
[2024-07-30] MEDS ORDERED: ATOR20TA GT (08:35)
[2024-07-30] MEDS ORDERED: OMEP20CA15 GT (08:35)
[2024-07-30] MEDS ORDERED: METO25TA6 GT (08:35)
[2024-07-30] MEDS ORDERED: PHEN32.46 GT (08:35)
[2024-07-30] MEDS ORDERED: CHOL100043 GT (08:35)
[2024-07-30 09:54] LABS: ABG BASE EXCESS -0.1 mmol/L (-2.0-3.0); ABG OXYGEN SATURATION 97.5 % (94.0-98.0); ABG PCO2 38.2 mmHg (35.0-48.0); ABG PH 7.419 (7.350-7.450); ABG PO2 101.4 mmHg (83.0-108.0); ABG TOTAL HEMOGLOBIN 15.5 G/dL (13.5-17.5); FLOW, BLOOD GAS 4.00 L/min (0.00-30.00); FRACTIONATED INSPIRED OXYGEN 37.0 %; SITE, ABG RIGHT RADIAL
[2024-07-30] MEDS: IV NS 0.9% 1,000 ML BAG IV ONE (09:54)
[2024-07-30] MEDS: CEFEPIME 1 GM in IV D5W 50 ML IV ONE (09:56)
[2024-07-30] MEDS: VANCOMYCIN 1 GM in IV D5W 250 ML IV ONE (10:22)
[2024-07-30] MEDS ORDERED: MAG HYDROX/AL HYDROX/SIMETH 30 ML UDC PO PRN (11:30)
[2024-07-30] MEDS ORDERED: CLONIDINE HCL 0.1 MG TABLET GT PRN (11:30)
[2024-07-30] MEDS ORDERED: MAGNESIUM HYDROXIDE 30 ML UDC GT PRN (11:30)
[2024-07-30] MEDS ORDERED: MAGNESIUM HYDROXIDE 30 ML UDC PO PRN (11:30)
[2024-07-30] MEDS ORDERED: ACETAMINOPHEN 325 MG TABLET PO PRN ×2 (11:30)
[2024-07-30] MEDS ORDERED: DEXTROSE 50%-WATER 50 ML DISP.SYRIN IV PRN (11:30)
[2024-07-30] MEDS ORDERED: ONDANSETRON HCL/PF 4 MG/2 ML VIAL IVP PRN (11:30)
[2024-07-30] MEDS ORDERED: Z GUARD REMEDY 4 OZ OINT TP PRN (11:30)
[2024-07-30] MEDS ORDERED: DOSING PER PHARMACY-CEFEPIME IVPB XX PRN (11:30)
[2024-07-30] MEDS ORDERED: DOSING PER PHARMACY-VANCOMYCIN IV XX PRN (11:30)
[2024-07-30] MEDS ORDERED: NA PHOS,M-B/NA PHOS,DI-BA 1 EA ENEMA RC PRN (11:30)
[2024-07-30] MEDS ORDERED: BISACODYL SUPP (10 MG) 10 MG/SUPP.RECT SUPP.RECT RC PRN (11:30)
[2024-07-30] MEDS: PANTOPRAZOLE 40 MG/PACK PACK GT SCH (13:39)
[2024-07-30] MEDS: INSULIN REGULAR, HUMAN 100 UNIT/ML 3 ML VIAL SQ PRN (13:40)
[2024-07-30] MEDS: IV NS 0.9% 1,000 ML IV PRN (13:41)
[2024-07-30] MEDS: GLUCERNA 1.2 1,000 ML BOTTLE NG PRN (13:41)
[2024-07-30] MEDS: BLOOD SUGAR DIAGNOSTIC 1 EACH STRIP VI SCH (13:41)
[2024-07-30] MEDS: METOPROLOL TARTRATE 25 MG TABLET GT SCH (17:24)
[2024-07-30] MEDS: CEFEPIME 2 GM in IV D5W 100 ML IV SCH (17:26)
[2024-07-30] MEDS: VANCOMYCIN 750 MG in IV D5W 250 ML IV SCH (18:22)
[2024-07-30] MEDS: HEPARIN SODIUM, PORCINE 5000 UNITS/1 ML VIAL SQ SCH (20:03)
[2024-07-30] MEDS: SENNOSIDES 8.6 MG TABLET GT SCH (21:11)
[2024-07-30] MEDS: INSULIN GLARGINE, 100 UNIT/ML CARTRIDGE SQ SCH (21:15)
[2024-07-31] VITALS (10 sets, daily range): BP systolic 119–139; BP diastolic 84–98; TEMP 98.1–99.5; O2SAT 96–99
[2024-07-31 07:05] LABS: PLATELET COUNT (AUTO) 252 K/uL (150-450); RED BLOOD CELL COUNT(AUTO) 5.05 MIL/uL (4.5-6.0); RED CELL DISTRIBUTION WIDTH 17.7 % (11.5-15.0); WHITE BLOOD COUNT (AUTO) 10.1 K/uL (4.3-11.0)
[2024-07-31 07:11] LABS: CALCIUM, SERUM 8.8 mg/dL (8.5-10.1); CREATININE 0.8 mg/dL (0.6-1.3); PHOSPHORUS 2.0 mg/dL (2.5-4.9); SODIUM SERUM 140.0 mmol/L (136-145); UREA NITROGEN, BLOOD 10.0 mg/dL (7-18)
[2024-07-31] MEDS: ACETAMINOPHEN 325 MG TABLET PO SCH (08:12)
[2024-07-31] MEDS: ASPIRIN 81 MG TAB.CHEW GT SCH (08:12)
[2024-07-31] MEDS: NEUTRA PHOS 1 POWD.PACKET NG ONE (16:37)
[2024-07-31] MEDS: ALBUTEROL FS 2.5 MG/3 ML VIAL.NEB NEB PRN (19:35)
[2024-07-31] MEDS: IPRATROPIUM NEB FS 0.5 MG/2.5 ML AMPUL.NEB NEB PRN (19:35)
[2024-07-31] MEDS: *INSULIN REGULAR(HUMULIN R)HUM 100 UNIT/ML VIAL SQ PRN (21:28)
[2024-08-01] VITALS (12 sets, daily range): BP systolic 102–136; BP diastolic 70–89; TEMP 97.3–100.2; O2SAT 16–100
[2024-08-01 13:20] LABS: CALCIUM, SERUM 8.3 mg/dL (8.5-10.1); CREATININE 0.6 mg/dL (0.6-1.3); SODIUM SERUM 141.0 mmol/L (136-145); UREA NITROGEN, BLOOD 8.0 mg/dL (7-18)
[2024-08-02] VITALS (16 sets, daily range): BP systolic 112–132; BP diastolic 70–88; TEMP 97.7–99.3; O2SAT 94–100
[2024-08-02 06:40] LABS: PLATELET COUNT (AUTO) 248 K/uL (150-450); RED BLOOD CELL COUNT(AUTO) 4.55 MIL/uL (4.5-6.0); RED CELL DISTRIBUTION WIDTH 17.4 % (11.5-15.0); WHITE BLOOD COUNT (AUTO) 5.7 K/uL (4.3-11.0)
[2024-08-02 07:48] LABS: CALCIUM, SERUM 9.1 mg/dL (8.5-10.1); CREATININE 0.7 mg/dL (0.6-1.3); SODIUM SERUM 144.0 mmol/L (136-145); UREA NITROGEN, BLOOD 8.0 mg/dL (7-18)
[2024-08-03] VITALS (15 sets, daily range): BP systolic 119–147; BP diastolic 86–97; TEMP 97.5–98.1; O2SAT 98–100
[2024-08-04] VITALS (12 sets, daily range): BP systolic 120–142; BP diastolic 82–97; TEMP 97.2–98.5; O2SAT 98–100
[2024-08-04 07:41] LABS: PLATELET COUNT (AUTO) 288 K/uL (150-450); RED BLOOD CELL COUNT(AUTO) 4.99 MIL/uL (4.5-6.0); RED CELL DISTRIBUTION WIDTH 17.3 % (11.5-15.0); WHITE BLOOD COUNT (AUTO) 6.4 K/uL (4.3-11.0)
[2024-08-04 09:08] LABS: ASPARTATE AMINOTRANSFERASE 19.0 U/L (15-37); CALCIUM, SERUM 9.3 mg/dL (8.5-10.1); CREATININE 0.6 mg/dL (0.6-1.3); PHOSPHORUS 2.7 mg/dL (2.5-4.9); TOTAL PROTEIN, SERUM 8.1 g/dL (6.4-8.2); UREA NITROGEN, BLOOD 9.0 mg/dL (7-18)
[2024-08-04 09:20] LABS: SODIUM SERUM 141.0 mmol/L (136-145)
[2024-08-05] VITALS (11 sets, daily range): BP systolic 92–138; BP diastolic 52–92; TEMP 97.2–98.1; O2SAT 97–100
[2024-08-05 08:50] LABS: PLATELET COUNT (AUTO) 303 K/uL (150-450); RED BLOOD CELL COUNT(AUTO) 4.61 MIL/uL (4.5-6.0); RED CELL DISTRIBUTION WIDTH 17.1 % (11.5-15.0); WHITE BLOOD COUNT (AUTO) 6.8 K/uL (4.3-11.0)
[2024-08-05 11:37] LABS: CALCIUM, SERUM 9.2 mg/dL (8.5-10.1); CREATININE 0.7 mg/dL (0.6-1.3); PHOSPHORUS 3.2 mg/dL (2.5-4.9); SODIUM SERUM 141.0 mmol/L (136-145); UREA NITROGEN, BLOOD 11.0 mg/dL (7-18)
[2024-08-05 12:24] LABS: ASPARTATE AMINOTRANSFERASE 33.0 U/L (15-37); TOTAL PROTEIN, SERUM 7.5 g/dL (6.4-8.2)
[2024-08-06] VITALS (7 sets, daily range): BP systolic 112–141; BP diastolic 79–96; TEMP 97.3–98.4; O2SAT 98–100
[2024-08-06 07:13] LABS: CALCIUM, SERUM 8.9 mg/dL (8.5-10.1); CREATININE 0.7 mg/dL (0.6-1.3); SODIUM SERUM 135.0 mmol/L (136-145); UREA NITROGEN, BLOOD 11.0 mg/dL (7-18)
[2024-08-06 07:21] LABS: PLATELET COUNT (AUTO) 289 K/uL (150-450); RED BLOOD CELL COUNT(AUTO) 4.80 MIL/uL (4.5-6.0); RED CELL DISTRIBUTION WIDTH 17.3 % (11.5-15.0); WHITE BLOOD COUNT (AUTO) 6.1 K/uL (4.3-11.0)
[2024-08-07] MEDS ORDERED: IPRA4AER IH ×2 (13:41)
== END 2024-08-06 16:09 | DRG 720 ==
LOC: ER 07:36 → TELE 10:26
PROVIDERS: ADMIT Internal Medicine; ATTEND Internal Medicine
PROC: 05H933Z Insertion of Infusion Device into Right Brachial Vein, Percutaneous Approach (ICD-10-PCS; principal; 2024-07-30)
DX: A41.9 Sepsis, unspecified organism (principal); J96.21 Acute and chronic respiratory failure with hypoxia; G93.41 Metabolic encephalopathy; J15.69 Pneumonia due to other Gram-negative bacteria; R13.10 Dysphagia, unspecified; E78.5 Hyperlipidemia, unspecified; Z99.81 Dependence on supplemental oxygen; E11.9 Type 2 diabetes mellitus without complications; R65.20 Severe sepsis without septic shock; I10 Essential (primary) hypertension; Y95 Nosocomial condition; G40.909 Epilepsy, unspecified, not intractable, without status epilepticus; Z93.0 Tracheostomy status; Z93.1 Gastrostomy status; Z79.82 Long term (current) use of aspirin; Z79.4 Long term (current) use of insulin; Z79.899 Other long term (current) drug therapy; F41.9 Anxiety disorder, unspecified; Z86.73 Personal history of transient ischemic attack (TIA), and cerebral infarction without residual deficits
CPT/HCPCS: 31720; 36415; 36600; 71045-TC; 80048-TC; 80053-TC; 80076-TC; 80202-TC; 81001; 82803-TC; 82962-TC; 83605-TC; 83735-TC; 84100-TC; 84484-TC; 85025-TC; 85730-TC; 87040-TC; 87081-TC; 87086-TC; 94640-TC; 94760-TC; 94799-TC; 99082-TC; A4223; A6403; A7526; G0378; J0692; J1644; J1815; J3370; J3371; J7030; J7040; J7060

== ENCOUNTER 2024-08-07 12:06 | Inpatient (IN) | payer MEDICAID ==
[~2024-08-07] VITALS: Ht 170.2 cm; Wt 86.2 kg
[~2024-08-07 12:06] MED LIST changes: -ASCO500C17 PO; +ATOR20TA GT; +CHOL100043 GT; -CHOL200013 PO; +CLOT15CR35 TP; -DOCU100C36 GT; -FAMO20TA8 GT; +METO25TA6 GT; -METO50TA16 GT; +OMEG1600 GT; +OMEP20CA15 GT; +PHEN32.46 GT; -QUERCETIN PO
[2024-08-07 12:15] VITALS: O2SAT 98
[2024-08-07 12:25] LABS: PLATELET COUNT (AUTO) 378 K/uL (150-450); RED BLOOD CELL COUNT(AUTO) 5.54 MIL/uL (4.5-6.0); RED CELL DISTRIBUTION WIDTH 17.6 % (11.5-15.0); WHITE BLOOD COUNT (AUTO) 10.2 K/uL (4.3-11.0)
[2024-08-07 12:32] LABS: CALCIUM, SERUM 10.6 mg/dL (8.5-10.1); CREATININE 1.1 mg/dL (0.6-1.3); SODIUM SERUM 141 mmol/L (136-145); UREA NITROGEN, BLOOD 19 mg/dL (7-18)
[2024-08-07 12:37] LABS: ASPARTATE AMINOTRANSFERASE 29 U/L (15-37); TOTAL PROTEIN, SERUM 9.6 g/dL (6.4-8.2)
[2024-08-07 12:40] LABS: INR 1.05 (0.91-1.10)
[2024-08-07 12:40] LABS: APPEARANCE,URINE CLEAR (CLEAR); UGLUCOSE NEGATIVE (NEGATIVE)
[2024-08-07 12:41] LABS: BLOOD, URINE LARGE Ery/uL (NEGATIVE); LEUKOCYTE ESTERASE ,URINE NEGATIVE (NEGATIVE); NITRITE, URINE NEGATIVE (NEGATIVE)
[2024-08-07 12:43] LABS: LACTIC ACID 2.4 mmol/L (0.4-2.0)
[2024-08-07] MEDS: PIPERACILLIN /TAZOBACTAM 3.375 G in IV D5W 50 ML IV ONE (12:43)
[2024-08-07] MEDS: IV NS 0.9% 1,000 ML BAG IV ONE (12:43)
[2024-08-07 12:48] LABS: ADD URINE CULTURE NO; SQUAMOUS EPITHELIAL CELL,UR Few /HPF (None Seen)
[2024-08-07] MEDS: VANCOMYCIN 1 GM in IV D5W 250 ML IV ONE (12:57)
[2024-08-07] MEDS ORDERED: IPRA4AER IH ×2 (13:41)
[2024-08-07] MEDS ORDERED: ACETAMINOPHEN 650 MG/SUPP.RECT RC ONE (14:25)
[2024-08-07] MEDS: ACETAMINOPHEN 650 MG/SUPP.RECT RC ONE (14:29)
[2024-08-07 15:53] VITALS: O2SAT 98
[2024-08-07] MEDS ORDERED: ONDANSETRON HCL/PF 4 MG/2 ML VIAL IVP PRN (16:00)
[2024-08-07] MEDS ORDERED: CLONIDINE HCL 0.1 MG TABLET GT PRN (16:00)
[2024-08-07] MEDS ORDERED: DOSING PER PHARMACY-CEFEPIME IVPB XX PRN (16:00)
[2024-08-07] MEDS ORDERED: MAGNESIUM HYDROXIDE 30 ML UDC PO PRN (16:00)
[2024-08-07] MEDS ORDERED: Z GUARD REMEDY 4 OZ OINT TP PRN (16:00)
[2024-08-07] MEDS ORDERED: NA PHOS,M-B/NA PHOS,DI-BA 1 EA ENEMA RC PRN (16:00)
[2024-08-07] MEDS ORDERED: ACETAMINOPHEN 325 MG TABLET PO PRN ×2 (16:00)
[2024-08-07] MEDS ORDERED: MAG HYDROX/AL HYDROX/SIMETH 30 ML UDC PO PRN (16:00)
[2024-08-07] MEDS ORDERED: MAGNESIUM HYDROXIDE 30 ML UDC GT PRN (16:00)
[2024-08-07] MEDS ORDERED: DOSING PER PHARMACY-VANCOMYCIN IV XX PRN (16:00)
[2024-08-07] MEDS ORDERED: DEXTROSE 50%-WATER 50 ML DISP.SYRIN IV PRN (16:00)
[2024-08-07] MEDS ORDERED: ACETAMINOPHEN ES 500 MG TABLET PO PRN (16:00)
[2024-08-07] MEDS ORDERED: ALBUTEROL FS 2.5 MG/3 ML VIAL.NEB NEB PRN (16:30)
[2024-08-07] MEDS ORDERED: IPRATROPIUM NEB FS 0.5 MG/2.5 ML AMPUL.NEB NEB PRN (16:30)
[2024-08-07] MEDS: BLOOD SUGAR DIAGNOSTIC 1 EACH STRIP VI SCH (16:37)
[2024-08-07] MEDS: METOPROLOL TARTRATE 25 MG TABLET GT SCH (16:38)
[2024-08-07] MEDS: PHENOBARBITAL 30 MG TABLET GT SCH (17:26)
[2024-08-07] MEDS: CEFEPIME 2 GM in IV D5W 100 ML IV SCH (17:27)
[2024-08-07 20:00] VITALS: BP_SYST 166; BP_DIAS 93; BP_DIAS 96; TEMP 98.1; TEMP 98.4; O2SAT 93
[2024-08-07] MEDS: IPRATROPIUM NEB FS 0.5 MG/2.5 ML AMPUL.NEB NEB SCH (20:15)
[2024-08-07] MEDS: ALBUTEROL FS 2.5 MG/3 ML VIAL.NEB NEB SCH (20:15)
[2024-08-07 20:17] VITALS: O2SAT 99
[2024-08-07 20:32] VITALS: O2SAT 99
[2024-08-07] MEDS: HEPARIN SODIUM, PORCINE 5000 UNITS/1 ML VIAL SQ SCH (21:31)
[2024-08-07] MEDS: SENNOSIDES 8.6 MG TABLET GT SCH (21:32)
[2024-08-07] MEDS: INSULIN GLARGINE, 100 UNIT/ML CARTRIDGE SQ SCH (22:39)
[2024-08-08] VITALS (16 sets, daily range): BP systolic 115–138; BP diastolic 77–96; TEMP 97.5–98.2; O2SAT 99–100
[2024-08-08] MEDS: VANCOMYCIN HCL 1.25 GM in IV D5W 250 ML IV SCH (00:31)
[2024-08-08 07:01] LABS: PLATELET COUNT (AUTO) 291 K/uL (150-450); RED BLOOD CELL COUNT(AUTO) 4.65 MIL/uL (4.5-6.0); RED CELL DISTRIBUTION WIDTH 17.1 % (11.5-15.0); WHITE BLOOD COUNT (AUTO) 5.6 K/uL (4.3-11.0)
[2024-08-08 07:16] LABS: CALCIUM, SERUM 9.0 mg/dL (8.5-10.1); CREATININE 0.7 mg/dL (0.6-1.3); PHOSPHORUS 2.5 mg/dL (2.5-4.9); SODIUM SERUM 144.0 mmol/L (136-145); UREA NITROGEN, BLOOD 12.0 mg/dL (7-18)
[2024-08-08] MEDS: ASPIRIN 81 MG TAB.CHEW GT SCH (08:07)
[2024-08-08] MEDS: PANTOPRAZOLE 40 MG/PACK PACK GT SCH (08:08)
[2024-08-08] MEDS: INSULIN REGULAR, HUMAN 100 UNIT/ML 3 ML VIAL SQ PRN (08:14)
[2024-08-08 08:44] LABS: EOSINOPHILS % (MANUAL) 1 % (0-4); LYMPHOCYTES % (MANUAL) 17 % (16-48); MONOCYTES % (MANUAL) 11 % (0-11.0); NEUTROPHILS % (MANUAL) 71 (42-76); PLATELET ESTIMATE ADEQUATE
[2024-08-08] MEDS: CLOTRIMAZOLE 1% 15 GM TUBE TP SCH (09:17)
[2024-08-08] MEDS: *INSULIN REGULAR(HUMULIN R)HUM 100 UNIT/ML VIAL SQ PRN (21:55)
[2024-08-09] VITALS (14 sets, daily range): BP systolic 108–123; BP diastolic 79–92; TEMP 97.3–99; O2SAT 95–100
[2024-08-09] MEDS ORDERED: JEVITY 1.2 CAL 1,000 ML BOTTLE GT PRN (04:30)
[2024-08-09 07:12] LABS: PLATELET COUNT (AUTO) 283 K/uL (150-450); RED BLOOD CELL COUNT(AUTO) 4.75 MIL/uL (4.5-6.0); RED CELL DISTRIBUTION WIDTH 17.3 % (11.5-15.0); WHITE BLOOD COUNT (AUTO) 6.5 K/uL (4.3-11.0)
[2024-08-09 07:36] LABS: CALCIUM, SERUM 9.3 mg/dL (8.5-10.1); CREATININE 0.7 mg/dL (0.6-1.3); SODIUM SERUM 142.0 mmol/L (136-145); UREA NITROGEN, BLOOD 11.0 mg/dL (7-18)
[2024-08-09] MEDS: VANCOMYCIN HCL 1.25 GM in IV D5W 250 ML IV SCH (12:16)
[2024-08-10] VITALS (10 sets, daily range): BP systolic 111–125; BP diastolic 79–84; TEMP 97.5–98.1; O2SAT 95–100
[2024-08-10] MEDS: IV NS 0.9% 1,000 ML IV PRN (00:17)
[2024-08-10 07:36] LABS: CALCIUM, SERUM 9.2 mg/dL (8.5-10.1); CREATININE 0.7 mg/dL (0.6-1.3); SODIUM SERUM 139.0 mmol/L (136-145); UREA NITROGEN, BLOOD 12.0 mg/dL (7-18)
[2024-08-10] MEDS ORDERED: CEFE1FRO IV (10:05)
== END 2024-08-10 14:12 | DRG 720 ==
LOC: ER 12:10 → TELE1 15:11
PROVIDERS: ADMIT Internal Medicine; ATTEND Internal Medicine
PROC: 5A1935Z Respiratory Ventilation, Less than 24 Consecutive Hours (ICD-10-PCS; principal; 2024-08-07)
DX: A41.9 Sepsis, unspecified organism (principal); J96.21 Acute and chronic respiratory failure with hypoxia; G93.41 Metabolic encephalopathy; J15.69 Pneumonia due to other Gram-negative bacteria; Z93.0 Tracheostomy status; E11.9 Type 2 diabetes mellitus without complications; E78.5 Hyperlipidemia, unspecified; I10 Essential (primary) hypertension; Z86.73 Personal history of transient ischemic attack (TIA), and cerebral infarction without residual deficits; R13.10 Dysphagia, unspecified; Z93.1 Gastrostomy status; Z79.51 Long term (current) use of inhaled steroids; Z79.4 Long term (current) use of insulin; Z79.82 Long term (current) use of aspirin; Z79.899 Other long term (current) drug therapy; F41.9 Anxiety disorder, unspecified; G40.909 Epilepsy, unspecified, not intractable, without status epilepticus; Y95 Nosocomial condition
CPT/HCPCS: 31720; 36415; 71045-TC; 80048-TC; 80076-TC; 80202-TC; 81001; 82962-TC; 83605-TC; 83735-TC; 84100-TC; 85025-TC; 85730-TC; 87040-TC; 87081-TC; 87086-TC; 94799-TC; A4223; A4349; A6213; A7526; G0378; J0692; J1644; J1815; J2543; J3370; J7030; J7050; J7060